=== PATIENT | male | born 1970 | race Hispanic/Latino ===

== ENCOUNTER 2018-01-05 21:45 | Inpatient (IN) | payer MEDICAID, OTHER ==
[2018-01-05 22:02] VITALS: BMI 32.6
--- NOTE | 2018-01-05 22:02 | ED PDOC ---
Arrival/HPI - General Chief Complaint: Psychiatric Evaluation Time Seen by Provider: 01/05/18 21:55 Historian: Patient, EMS - History of Present Illness Narrative History of Present Illness (Text): 47 y/o M w/ h/o substance abuse, bipolar disorder, and anxiety presenting to the ED as a transfer from [facility] for psychiatric admission. Patient was seen and medically cleared at [facility] prior to transfer. Patient was seen by crisis and was accepted for transfer for psychiatric admission by the psychiatric bone density technician. Patient states he feels fine currently. Patient denies any fever, chills, chest pain, shortness of breath, nausea, vomiting, diarrhea, urinary symptoms, back pain, neck pain, headache, dizziness, or any other complaints. Time/Duration: Other (today) Symptom Onset: Gradual Symptom Course: Unchanged Activities at Onset: Light Past Medical History - Provider Review Nursing Documentation Reviewed: Yes - Travel History Have you recently traveled outside [place] w/in the past 3 mons?: No Family/Social History - Physician Review Nursing Documentation Reviewed: Yes Family/Social History: Unknown Family HX Allergies/Home Meds Allergies/Adverse Reactions: Allergies haloperidol [From Haldol] Allergy (Verified 01/06/18 00:53) ANAPHYLAXIS ziprasidone [From Geodon] Allergy (Verified 01/06/18 00:53) ANAPHYLAXIS Review of Systems - Physician Review All systems were reviewed & negative as marked: Yes - Review of Systems Constitutional: Normal. absent: Fevers Eyes: Normal ENT: Normal Respiratory: Normal. absent: SOB, Cough Cardiovascular: Normal. absent: Chest Pain Gastrointestinal: Normal. absent: Abdominal Pain, Diarrhea, Nausea, Vomiting Genitourinary Male: Normal. absent: Dysuria, Frequency, Hematuria, Urinary Output Changes Musculoskeletal: Normal. absent: Back Pain, Neck Pain Skin: Normal. absent: Rash Neurological: Normal. absent: Headache, Dizziness Endocrine: Normal Hemo/Lymphatic: Normal Physical Exam Vital Signs Reviewed: Yes Vital Signs Temp Pulse Resp BP Pulse Ox 01/05/18 22:04 98.4 F 97 H 18 112/73 95 Temperature: Afebrile Blood Pressure: Normal Pulse: Regular Respiratory Rate: Normal Appearance: Positive for: Well-Appearing, Non-Toxic, Comfortable Pain Distress: None Mental Status: Positive for: Alert and Oriented X 3 - Systems Exam Head: Present: Atraumatic, Normocephalic Pupils: Present: PERRL Extroacular Muscles: Present: EOMI Conjunctiva: Present: Normal Mouth: Present: Moist Mucous Membranes Neck: Present: Normal Range of Motion Respiratory/Chest: Present: Clear to Auscultation, Good Air Exchange. No: Respiratory Distress, Accessory Muscle Use Cardiovascular: Present: Regular Rate and Rhythm, Normal S1, S2. No: Murmurs Abdomen: No: Tenderness, Distention, Peritoneal Signs Back: Present: Normal Inspection Upper Extremity: Present: Normal Inspection. No: Cyanosis, Edema Lower Extremity: Present: Normal Inspection. No: Edema Neurological: Present: GCS=15, CN II-XII Intact, Speech Normal Skin: Present: Warm, Dry, Normal Color. No: Rashes Psychiatric: Present: Alert, Oriented x 3, Normal Insight, Normal Concentration Medical Decision Making ED Course and Treatment: 01/05/18 21:58 Impression: 47 year old male transferred from [facility] for psychiatric admission. Plan: -- Admission to [facility] Progress Notes: Patient was seen and medically cleared at [facility] prior to transfer. Patient was accepted for transfer for psychiatric admission by the psychiatric bone density technician. Patient will be admitted to [facility] under Dr. Koehler's service for bipolar disorder and anxiety. Patient agreeable with plan. - Medication Orders Current Medication Orders: Acetaminophen (Tylenol 325mg Tab) 650 mg PO Q6H PRN PRN Reason: Pain, moderate (4-7) Last Admin: 01/13/18 05:25 Dose: 650 mg [facility] Pain/Vitals Document 01/13/18 05:25 EOO (Rec: 01/13/18 05:25 EOO [id number]) Pain Reassessment Is This A Pain ReAssessment? No Sleep Is patient sleeping during reassessment? Yes Re-Assess: IVAN Pain/Vitals Document 01/13/18 06:25 EOO (Rec: 01/13/18 07:00 EOO [id number]) Pain Reassessment Is This A Pain ReAssessment? No Albuterol/Ipratropium (Duoneb 3 Mg/0.5 Mg (3 Ml) Ud) 3 ml IH [id number] PRN PRN Reason: Shortness of Breath Chlorpromazine (Thorazine) 50 mg IM Q6H PRN; Protocol PRN Reason: Severe Agitation Chlorpromazine (Thorazine) 50 mg PO Q6H PRN; Protocol PRN Reason: Agitation Cyclobenzaprine HCl (Flexeril) 10 mg PO TID PRN PRN Reason: Other Last Admin: 01/14/18 04:08 Dose: 10 mg Docusate Sodium (Colace) 100 mg PO DAILY [facility] Last Admin: 01/14/18 09:27 Dose: 100 mg Last Bowel Movement Document 01/14/18 09:27 CV (Rec: 01/14/18 09:27 CV [id number]) Last Bowel Movement Last Bowel Movement 01/13/18 Famotidine (Pepcid) 20 mg PO DAILY [facility] Last Admin: 01/14/18 09:40 Dose: Not Given Non-Admin Reason: Patient Refused Gabapentin (Neurontin) 300 mg PO TID [facility] PRN Reason: Protocol Last Admin: 01/14/18 13:29 Dose: 300 mg Behavioural Document 01/14/18 13:29 CV (Rec: 01/14/18 13:29 CV [id number]) Maintenance Maintenance Dose Yes Nonmedicinal Nonmedicinal Interventions Therapeutic Communication Re-Assess: Reassess Psych Meds Document 01/14/18 14:29 CV (Rec: 01/14/18 15:43 CV [id number]) Reassess Psych Med Effective Home Med (Home Med) 1 unit PO DAILY [facility] Last Admin: 01/14/18 09:31 Dose: 1 unit Lidocaine (Lidoderm) 2 ea TD DAILY [facility] Last Admin: 01/14/18 09:35 Dose: 2 ea MAR Transdermal Patch Site Document 01/14/18 09:35 CV (Rec: 01/14/18 09:36 CV [id number]) Transdermal Patch Site Transdermal Patch Site Right Upper Chest [place] Carbonate ([place] Carbonate 300mg) 300 mg PO BID [facility] Last Admin: 01/14/18 09:28 Dose: 300 mg Behavioural Document 01/14/18 09:28 CV (Rec: 01/14/18 09:28 CV [id number]) Maintenance Maintenance Dose Yes Nonmedicinal Nonmedicinal Interventions Therapeutic Communication Re-Assess: Reassess Psych Meds Document 01/14/18 10:28 CV (Rec: 01/14/18 13:24 CV [id number]) Reassess Psych Med Effective [place] Carbonate ([place] Carbonate 300mg) 300 mg PO HS [facility] Last Admin: 01/13/18 23:41 Dose: 300 mg Behavioural Document 01/13/18 23:41 EOO (Rec: 01/13/18 23:41 EOO [id number]) Maintenance Maintenance Dose Yes Nonmedicinal Nonmedicinal Interventions Therapeutic Communication Behavior Behavior for Medication: Continuous pacing/restlessness Re-Assess: Reassess Psych Meds Document 01/14/18 00:41 EOO (Rec: 01/14/18 03:15 EOO [id number]) Reassess Psych Med Effective Lorazepam (Ativan) 2 mg IM Q6H PRN; Protocol PRN Reason: Severe Agitation Lorazepam (Ativan) 2 mg PO Q6H PRN; Protocol PRN Reason: Agitation Last Admin: 01/14/18 13:28 Dose: 2 mg Behavioural Document 01/14/18 13:28 CV (Rec: 01/14/18 13:28 CV [id number]) Maintenance Maintenance Dose No Nonmedicinal Nonmedicinal Interventions Therapeutic Communication Behavior Behavior for Medication: Anxiety Re-Assess: Reassess Psych Meds Document 01/14/18 14:28 CV (Rec: 01/14/18 15:43 CV [id number]) Reassess Psych Med Effective Nicotine (Nicoderm Cq) 1 patch TD DAILY [facility] Last Admin: 01/14/18 09:25 Dose: 1 patch MAR Transdermal Patch Site Document 01/14/18 09:25 CV (Rec: 01/14/18 09:25 CV [id number]) Transdermal Patch Site Transdermal Patch Site Left Outer Upper Arm Quetiapine Fumarate (Seroquel Xr) 800 mg PO HS JOHN PRN Reason: Protocol Last Admin: 01/13/18 21:38 Dose: 800 mg Behavioural Document 01/13/18 21:38 EOO (Rec: 01/13/18 21:39 EOO [id number]) Maintenance Maintenance Dose Yes Nonmedicinal Nonmedicinal Interventions Therapeutic Communication Behavior Behavior for Medication: Hallucinations/paranoid/ delusions/extreme fear Re-Assess: Reassess Psych Meds Document 01/13/18 22:38 EOO (Rec: 01/13/18 23:40 EOO [id number]) Reassess Psych Med Effective Senna/Docusate Sodium (Senokot S 50 Mg-8.6 Mg) 2 tab PO DAILY JOHN Last Admin: 01/14/18 09:26 Dose: 2 tab Tramadol HCl (Ultram) 50 mg PO TID PRN PRN Reason: severe pain >=7/10 Last Admin: 01/14/18 09:33 Dose: 50 mg [facility] Pain Assessment Document 01/14/18 09:33 CV (Rec: 01/14/18 09:34 CV [id number]) Pain Reassessment Is this a pain reassessment? No Sleep Is patient sleeping during reassessment? No Pain Scale Used Pain Scale Used Numeric Location Left, Right or Bilateral Bilateral Pain Location Body Site Chest Description Description Intermittent Intensity of Pain at present 8 Acceptable Level of Pain 3 Pain Behavior Moaning Aggravating Factors Changing Position Alleviating Factors/Management Medication Techniques Alleviating Factors Medication Re-Assess: [facility] Pain Assessment Document 01/14/18 10:33 CV (Rec: 01/14/18 13:26 CV [id number]) Pain Reassessment Is this a pain reassessment? Yes Sleep Is patient sleeping during reassessment? No Presence of Pain Presence of Pain Yes Pain Scale Used Pain Scale Used Numeric Location Left, Right or Bilateral Bilateral Pain Location Body Site Chest Description Description Intermittent Intensity of Pain at present 3 Alleviating Factors/Management Medication Techniques Alleviating Factors Medication Venlafaxine HCl (Effexor Xr) 300 mg PO DAILY [facility] Last Admin: 01/14/18 09:27 Dose: 300 mg Zolpidem Tartrate (Ambien) 10 mg PO HS PRN; Protocol PRN Reason: Insomnia Last Admin: 01/13/18 21:39 Dose: 10 mg Behavioural Document 01/13/18 21:39 EOO (Rec: 01/13/18 21:39 EOO [id number]) Maintenance Maintenance Dose Yes Nonmedicinal Nonmedicinal Interventions Therapeutic Communication Behavior Behavior for Medication: Insomnia Re-Assess: Reassess Psych Meds Document 01/13/18 22:39 EOO (Rec: 01/13/18 23:40 EOO [id number]) Reassess Psych Med Effective Discontinued Medications Albuterol/Ipratropium (Duoneb 3 Mg/0.5 Mg (3 Ml) Ud) 3 ml IH STAT STA Stop: 01/06/18 13:20 Last Admin: 01/06/18 15:47 Dose: 3 ml Alprazolam (Xanax) 0.25 mg PO QID PRN; Protocol PRN Reason: Anxiety Stop: 01/13/18 08:01 Last Admin: 01/13/18 05:25 Dose: 0.25 mg Behavioural Document 01/13/18 05:25 EOO (Rec: 01/13/18 05:25 EOO [id number]) Maintenance Maintenance Dose Yes Nonmedicinal Nonmedicinal Interventions Therapeutic Communication Behavior Behavior for Medication: Anxiety Re-Assess: Reassess Psych Meds Document 01/13/18 06:25 EOO (Rec: 01/13/18 07:00 EOO [id number]) Reassess Psych Med Effective Amoxicillin/Clavulanate Potassium (Augmentin 875 Mg-125 Mg Tab) 1 tab PO BID JOHN PRN Reason: Protocol Stop: 01/09/18 16:01 Last Admin: 01/09/18 17:07 Dose: 1 tab Zolpidem Tartrate (Ambien) 5 mg PO HS PRN; Protocol PRN Reason: Insomnia Last Admin: 01/10/18 21:26 Dose: 5 mg Behavioural Document 01/10/18 21:26 EOO (Rec: 01/10/18 21:26 EOO [id number]) Maintenance Maintenance Dose Yes Nonmedicinal Nonmedicinal Interventions Therapeutic Communication Behavior Behavior for Medication: Insomnia Re-Assess: Reassess Psych Meds Document 01/10/18 22:26 EOO (Rec: 01/10/18 22:54 EOO [id number]) Reassess Psych Med Effective - Scribe Statement The provider has reviewed the documentation as recorded by the Fawad Paul Provider Scribe Attestation: All medical record entries made by the Scribe were at my direction and personally dictated by me. I have reviewed the chart and agree that the record accurately reflects my personal performance of the history, physical exam, medical decision making, and the department course for this patient. I have also personally directed, reviewed, and agree with the discharge instructions and disposition. Disposition/Present on Arrival - Present on Arrival Any Indicators Present on Arrival: No History of DVT/PE: No History of Uncontrolled Diabetes: No Urinary Catheter: No History of Decub. Ulcer: No - Disposition Have Diagnosis and Disposition been Completed?: Yes Diagnosis: Bipolar 1 disorder Disposition: HOSPITALIZED Disposition Time: 22:35 Patient Plan: Admission Patient Problems: Current Active Problems Problem Status Onset Bipolar 1 disorder Acute Opioid use disorder Acute Condition: STABLE
[2018-01-06] MEDS: QUEtiapine 200 mg XR Tab PO SCH ×2 (00:22→21:22)
[2018-01-06 01:34] VITALS: O2SAT 94
--- NOTE | 2018-01-06 03:35 | PCM.BM ---
<WaltIssa - Last Filed: 01/06/18 03:32> Treatment Plan Problems - Problems identified on initial assessmt Ineffective Coping Date Initiated: 01/05/18 Time Initiated: 22:45 Assessment reference: NA Status: Active Priority: 1 Ineffective Impulse Control Date Initiated: 01/05/18 Time Initiated: 22:45 Assessment reference: NA Status: Active Priority: 2 Hopelessness/Hopelessness Date Initiated: 01/05/18 Time Initiated: 22:45 Assessment reference: NA Status: Active Priority: 3 Feelings of Worthlessness Date Initiated: 01/05/18 Time Initiated: 22:45 Assessment reference: NA Status: Active Priority: 4 Anxiety Date Initiated: 01/05/18 Time Initiated: 22:45 Assessment reference: NA Status: Active Priority: 5 Treatment assets and liabiliti Patient Assests: cooperative, ADL independent, negotiates basic needs, cognitively intact, good interpersonal skills Patient Liabilities: physical pain, financial problems, poor support system, substance abuse, medical problems - Milieu Protocol Maintain good personal hygiene: daily Encourage regular showers, every shift Remind patient to perform daily oral care, every shift Assist patient to perform ADL's Maintain personal safety: every shift Educate patient to report safety concerns to staff, every shift Monitor environment for contraband/sharps Medication safety: Monitor for expected outcome, potential side effects: every shift, Assess barriers to learning: every shift, Assess readiness for medication education: every shift Family Contact Family involvement: No known Family/SO Family contact: Patient declines to allow family contact at present - Goals for Treatment Patient goals for treatment: Feel needed, sense of not wanting to hurt myself. Discharge/Continuing Care - Education Needs Education Needs: Patient Medication, Patient Diagnosis/Disease Process, Patient Coping Skills, Patient Anger Management skills, Patient Placement options, Patient Community resources, Patient Activities of Daily Living, Patient Pain, Patient Nutrition, Patient Uses of Medical Equipment, Patient Health Practices/ Safety, Patient Personal Hygiene/Grooming, Patient Aftercare Safety Plan - Discharge Discharge Criteria: Tolerates medication w/o severe side effects <Janny Koehler - Last Filed: 01/06/18 15:35> - Diagnosis (1) Bipolar 1 disorder Status: Acute Interventions: 01/06/18 15:36 Psychoeducation Psychopharmacology/adjustment of medications as needed/ monitoring possible side effects Monitor blood level of mood stabilizers Evaluate pt on daily basis Compliance with medications and follow up appointments Suicide and homicide risk assessment and prevention, coping strategies, safety plan Relapse prevention Reduction of symptoms Improve functional status Family involvement As outpatient: cognitive behavioral therapy (2) Opioid use disorder Status: Acute Interventions: 01/06/18 15:36 Maintaining sobriety Relapse prevention Possible rehabilitation Motivational interviewing 12-step programs: AA meetings <Galina Black Y - Last Filed: 01/07/18 13:20> Family Contact Family involvement: Famliy/SO not involved
[2018-01-06 07:47] LABS: GLUCOSE,FASTING 90 mg/dL (65-110); HDL CHOLESTEROL 28 mg/dL (29-60)
[2018-01-06 07:59] LABS: LDL CHOLESTEROL 78 mg/dL (0-129)
[2018-01-06] MEDS: Docusate-Senna 50 mg-8.6 mg Tab PO SCH (09:07)
[2018-01-06] MEDS: Amoxicillin-Clav 875-125 mg Tab PO SCH ×2 (09:07→17:19)
[2018-01-06] MEDS: Venlafaxine 75 mg ER Cap PO SCH (09:07)
[2018-01-06] MEDS: ODEFSEY PO SCH (09:49)
[2018-01-06 10:26] LABS: BASO # 0.02 K/mm3 (0.0-2.0); BASO % 0.5 % (0.0-3.0); EOS # 0.2 (0.0-0.7); EOS % 4.3 % (1.5-5.0); GRAN # 2.24 (1.4-6.5); GRAN % 57.3 % (50.0-68.0); HEMOGLOBIN 11.3 g/dL (14.0-18.0); LYMPH # 1.1 (1.2-3.4); LYMPH % 28.9 % (22.0-35.0); MEAN CELL VOLUME 91.8 fl (80.0-105.0); MEAN CORPUSCULAR HGB CONC 33.7 g/dl (31.0-37.0); MEAN PLATELET VOLUME 9.1 fl (7.0-11.0); MONO # 0.4 (0.1-0.6); RBC 3.65 10^6/uL (3.5-6.1); RED CELL DISTRIBUTION WIDTH 14.5 % (11.5-14.5); WHITE BLOOD COUNT 3.9 10^3/ul (4.5-11.0)
[2018-01-06 10:33] LABS: ALB/GLOB RATIO 1.1 (1.1-1.8); ALBUMIN 3.5 g/dL (3.0-4.8); ALT/SGPT 128 U/L (7-56); AST/SGOT 101 U/L (17-59); BLOOD UREA NITROGEN 9 mg/dL (7-21); CALCIUM 9.2 mg/dL (8.4-10.5); GFR NON-AFRICAN AMERICAN > 60
[2018-01-06] MEDS ORDERED: Albuterol-Ipratrop 3 mg / 0.5 (3 ml) UD IH STA (13:19)
[2018-01-06] MEDS ORDERED: Albuterol-Ipratrop 3 mg / 0.5 (3 ml) UD IH PRN (13:19)
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
--- NOTE | 2018-01-06 21:46 | CP.PCM.CON ---
<Damián Phillip - Last Filed: 01/06/18 21:46> History of Present Illness - History of Present Illness History of Present Illness: Damián Phillip, PGY1 Medicine Consult Note for Dr. Navarrete Patient is a 47 y/o M with PMHx of bipolar disorder, anxiety, opioid use disorder, multiple psychiatric admissions, and multiple suicide attempts who was initially found have been overdosing on heroin. He was found unresponsive with eight bags of heroin. Patient was in respiratory failure. CPR was conducted in the field. Patient was transferred to [facility], where patient was stabilized and became responsive. Patient was transferred back to [facility] for inpatient psychiatry unit to continue with his treatment. Patient has recently been complaining of chest pain and needed medical team evaluation. Patient stated that he has chest pain that is worse with deep breaths. Chest pain is located at the sternum and xyphoid process with pain at the left and right ribcage. Chest pain is associated with deep breaths. Patient also says that he is on Augmentin for treatment of his pneumonia (currently on day 4). Patient does not have abdominal pain, lightheadedness, dizziness, nausea, vomiting, diarrhea, or numbness and tingling of the extremities. Patient still endorses suicide ideation and depression. A full 12 point ROS was conducted and unremarkable except as stated above. PMHx: bipolar disorder, anxiety, opioid use disorder, multiple psychiatric admissions, and multiple suicide attempts PSHx: cholecystectomy Allergies: Haloperidol, ziprasidone Meds: unknown home meds SocialHx: 25 pack year smoking hx, heroin use once a week, social drinker FamilyHx: mother had cancer (uknown which type), father had emphysema Review of Systems - Review of Systems All systems: reviewed and no additional remarkable complaints except (as per HPI.) Past Patient History - Past Social History Smoking Status: Never Smoked - HEMATOLOGICAL/ONCOLOGICAL Hx Hepatitis C: Yes - PSYCHIATRIC Hx Anxiety: Yes Hx Bipolar Disorder: Yes Hx Depression: Yes Hx Substance Use: Yes Meds Allergies/Adverse Reactions: Allergies Allergy/AdvReac Type Severity Reaction Status Date / Time haloperidol [From Haldol] Allergy ANAPHYLAXIS Verified 01/06/18 00:53 ziprasidone [From Geodon] Allergy ANAPHYLAXIS Verified 01/06/18 00:53 - Medications Medications: Current Medications Acetaminophen (Tylenol 325mg Tab) 650 mg PO Q6H PRN PRN Reason: Pain, moderate (4-7) Last Admin: 01/06/18 21:22 Dose: 650 mg Albuterol/Ipratropium (Duoneb 3 Mg/0.5 Mg (3 Ml) Ud) 3 ml IH [id number] PRN PRN Reason: Shortness of Breath Alprazolam (Xanax) 0.25 mg PO QID PRN; Protocol PRN Reason: Anxiety Stop: 01/13/18 08:01 Last Admin: 01/06/18 17:19 Dose: 0.25 mg Amoxicillin/Clavulanate Potassium (Augmentin 875 Mg-125 Mg Tab) 1 tab PO BID JOHN PRN Reason: Protocol Stop: 01/09/18 16:01 Last Admin: 01/06/18 17:19 Dose: 1 tab Chlorpromazine (Thorazine) 50 mg IM Q6H PRN; Protocol PRN Reason: Severe Agitation Chlorpromazine (Thorazine) 50 mg PO Q6H PRN; Protocol PRN Reason: Agitation Cyclobenzaprine HCl (Flexeril) 10 mg PO TID PRN PRN Reason: Other Last Admin: 01/06/18 17:19 Dose: 10 mg Docusate Sodium (Colace) 100 mg PO DAILY [facility] Last Admin: 01/06/18 09:08 Dose: 100 mg Famotidine (Pepcid) 20 mg PO DAILY [facility] Last Admin: 01/06/18 09:10 Dose: Not Given Gabapentin (Neurontin) 300 mg PO TID JOHN PRN Reason: Protocol Last Admin: 01/06/18 17:20 Dose: 300 mg Home Med (Home Med) 1 unit PO DAILY [facility] Last Admin: 01/06/18 09:49 Dose: 1 unit Lidocaine (Lidoderm) 2 ea TD DAILY [facility] [place] Carbonate ([place] Carbonate 300mg) 300 mg PO BID [facility] Last Admin: 01/06/18 17:19 Dose: 300 mg Lorazepam (Ativan) 2 mg IM Q6H PRN; Protocol PRN Reason: Severe Agitation Lorazepam (Ativan) 2 mg PO Q6H PRN; Protocol PRN Reason: Agitation Last Admin: 01/06/18 09:08 Dose: 2 mg Nicotine (Nicoderm Cq) 1 patch TD DAILY [facility] Last Admin: 01/06/18 09:07 Dose: 1 patch Quetiapine Fumarate (Seroquel Xr) 800 mg PO HS JOHN PRN Reason: Protocol Last Admin: 01/06/18 21:22 Dose: 800 mg Senna/Docusate Sodium (Senokot S 50 Mg-8.6 Mg) 2 tab PO DAILY [facility] Last Admin: 01/06/18 09:07 Dose: 2 tab Venlafaxine HCl (Effexor Xr) 300 mg PO DAILY [facility] Last Admin: 01/06/18 09:07 Dose: 300 mg Zolpidem Tartrate (Ambien) 5 mg PO HS PRN; Protocol PRN Reason: Insomnia Last Admin: 01/06/18 21:23 Dose: 5 mg Physical Exam - Head Exam Head Exam: ATRAUMATIC, NORMAL INSPECTION, NORMOCEPHALIC - Eye Exam Eye Exam: EOMI, Normal appearance, PERRL Pupil Exam: NORMAL ACCOMODATION, PERRL - ENT Exam ENT Exam: Mucous Membranes Moist, Normal Exam - Neck Exam Neck exam: Positive for: Normal Inspection - Respiratory Exam Respiratory Exam: Chest Wall Tenderness (Tenderness to palpation at the xiphoid process and the left/right rib cage), Clear to Auscultation Bilateral, NORMAL BREATHING PATTERN. absent: Rales, Rhonchi, Wheezes, Respiratory Distress - Cardiovascular Exam Cardiovascular Exam: REGULAR RHYTHM, RRR, +S1, +S2. absent: Systolic Murmur - GI/Abdominal Exam GI & Abdominal Exam: Normal Bowel Sounds, Soft. absent: Tenderness - Extremities Exam Extremities exam: Positive for: full ROM, normal inspection, pedal pulses present. Negative for: pedal edema, tenderness - Skin Skin Exam: Dry, Intact, Normal Color, Warm Results - Vital Signs Recent Vital Signs: Last Vital Signs Temp 97.6 F 01/06/18 06:50 Pulse 95 H 01/06/18 16:16 Resp 18 01/06/18 16:16 BP 116/71 01/06/18 16:16 Pulse Ox 94 L 01/05/18 22:35 - Labs Result Diagrams: 01/06/18 10:10 01/06/18 10:10 Labs: Laboratory Results - last 24 hr 01/06/18 01/06/18 01/06/18 07:15 07:15 07:15 WBC RBC Hgb Hct MCV MCH MCHC RDW Plt Count MPV Gran % Lymph % (Auto) [place] % (Auto) Eos % (Auto) Baso % (Auto) Gran # Lymph # (Auto) [place] # (Auto) Eos # (Auto) Baso # (Auto) Sodium Potassium Chloride Carbon Dioxide Anion Gap BUN Creatinine Est GFR ( Amer) Est GFR (Non-Af Amer) Random Glucose Fasting Glucose 90 Calcium Magnesium Total Bilirubin AST ALT Alkaline Phosphatase Total Protein Albumin Globulin Albumin/Globulin Ratio Triglycerides 127 Cholesterol 150 LDL Cholesterol Direct 78 HDL Cholesterol 28 L Free T4 TSH 3rd Generation 5.56 H RPR Nonreactive 01/06/18 01/06/18 01/06/18 10:10 10:10 10:10 WBC 3.9 L RBC 3.65 Hgb 11.3 L Hct 33.5 L MCV 91.8 MCH 31.0 MCHC 33.7 RDW 14.5 Plt Count 191 MPV 9.1 Gran % 57.3 Lymph % (Auto) 28.9 [place] % (Auto) 9.0 H Eos % (Auto) 4.3 Baso % (Auto) 0.5 Gran # 2.24 Lymph # (Auto) 1.1 L [place] # (Auto) 0.4 Eos # (Auto) 0.2 Baso # (Auto) 0.02 Sodium 139 Potassium 4.0 Chloride 105 Carbon Dioxide 28 Anion Gap 10 BUN 9 Creatinine 0.8 Est GFR ( Amer) > 60 Est GFR (Non-Af Amer) > 60 Random Glucose 120 H Fasting Glucose Calcium 9.2 Magnesium 1.7 Total Bilirubin 0.8 AST 101 H ALT 128 H Alkaline Phosphatase 230 H Total Protein 6.7 Albumin 3.5 Globulin 3.2 Albumin/Globulin Ratio 1.1 Triglycerides Cholesterol LDL Cholesterol Direct HDL Cholesterol Free T4 0.93 TSH 3rd Generation RPR Assessment & Plan - Assessment and Plan (Free Text) Assessment: Patient is a 47 y/o M with PMHx of bipolar disorder, anxiety, opioid use disorder, multiple psychiatric admissions, and multiple suicide attempts who was initially found have been overdosing on heroin. Patient was unresponsive in the field, CPR was conducted, and patient was stabilized. Medical team consulted for chest pain evaluation. Chest pain is atypical in nature and secondary to chest compressions. Plan: Reproducible Chest Pain 2/2 Cardiopulmonary Resuscitation - Reproducible chest pain on palpation at sternum/xiphoid process and lateral rib cages; worsened with deep breaths - Vital signs stable - Free T4 level - TSH was 5.56 - Pain control with tylenol Pneumonia - c/w Augmentin for a total of 7 days - Today is day #4 - nebulizer treatment Substance Abuse - Heroin - Counseling Bipolar Disorder - c/w inpatient psych - c/w psych meds - Patient is depressed and continues to have suicidal ideation Dispo: Patient has no acute issues at this time. Medical team will sign off. Please reconsult if needed. Thank you. Case was discussed and reviewed with Attending Physician, Dr. Navarrete. <Ava Navarrete R - Last Filed: 01/07/18 14:17> Meds - Medications Medications: Current Medications Acetaminophen (Tylenol 325mg Tab) 650 mg PO Q6H PRN PRN Reason: Pain, moderate (4-7) Last Admin: 01/06/18 21:22 Dose: 650 mg Albuterol/Ipratropium (Duoneb 3 Mg/0.5 Mg (3 Ml) Ud) 3 ml IH [id number] PRN PRN Reason: Shortness of Breath Alprazolam (Xanax) 0.25 mg PO QID PRN; Protocol PRN Reason: Anxiety Stop: 01/13/18 08:01 Last Admin: 01/07/18 13:05 Dose: 0.25 mg Amoxicillin/Clavulanate Potassium (Augmentin 875 Mg-125 Mg Tab) 1 tab PO BID JOHN PRN Reason: Protocol Stop: 01/09/18 16:01 Last Admin: 01/07/18 08:19 Dose: 1 tab Chlorpromazine (Thorazine) 50 mg IM Q6H PRN; Protocol PRN Reason: Severe Agitation Chlorpromazine (Thorazine) 50 mg PO Q6H PRN; Protocol PRN Reason: Agitation Cyclobenzaprine HCl (Flexeril) 10 mg PO TID PRN PRN Reason: Other Last Admin: 01/07/18 13:05 Dose: 10 mg Docusate Sodium (Colace) 100 mg PO DAILY [facility] Last Admin: 01/07/18 08:19 Dose: 100 mg Famotidine (Pepcid) 20 mg PO DAILY [facility] Last Admin: 01/07/18 08:20 Dose: Not Given Gabapentin (Neurontin) 300 mg PO TID [facility] PRN Reason: Protocol Last Admin: 01/07/18 13:05 Dose: 300 mg Home Med (Home Med) 1 unit PO DAILY [facility] Last Admin: 01/07/18 08:18 Dose: 1 unit Lidocaine (Lidoderm) 2 ea TD DAILY [facility] Last Admin: 01/07/18 08:18 Dose: 2 ea [place] Carbonate ([place] Carbonate 300mg) 300 mg PO BID [facility] Last Admin: 01/07/18 08:19 Dose: 300 mg Lorazepam (Ativan) 2 mg IM Q6H PRN; Protocol PRN Reason: Severe Agitation Lorazepam (Ativan) 2 mg PO Q6H PRN; Protocol PRN Reason: Agitation Last Admin: 01/06/18 09:08 Dose: 2 mg Nicotine (Nicoderm Cq) 1 patch TD DAILY [facility] Last Admin: 01/07/18 08:18 Dose: 1 patch Quetiapine Fumarate (Seroquel Xr) 800 mg PO HS JOHN PRN Reason: Protocol Last Admin: 01/06/18 21:22 Dose: 800 mg Senna/Docusate Sodium (Senokot S 50 Mg-8.6 Mg) 2 tab PO DAILY [facility] Last Admin: 01/07/18 08:19 Dose: 2 tab Venlafaxine HCl (Effexor Xr) 300 mg PO DAILY [facility] Last Admin: 01/07/18 08:18 Dose: 300 mg Zolpidem Tartrate (Ambien) 5 mg PO HS PRN; Protocol PRN Reason: Insomnia Last Admin: 01/06/18 21:23 Dose: 5 mg Results - Vital Signs Recent Vital Signs: Last Vital Signs Temp 98.5 F 01/07/18 06:57 Pulse 93 H 01/07/18 06:57 Resp 20 01/07/18 06:57 BP 119/73 01/07/18 06:57 Pulse Ox 94 L 01/05/18 22:35 - Labs Result Diagrams: 01/06/18 10:10 01/06/18 10:10 Labs: Laboratory Results - last 24 hr 01/06/18 07:15 RPR Nonreactive Attending/Attestation - Attestation I have personally seen and examined this patient.: Yes I have fully participated in the care of the patient.: Yes I have reviewed all pertinent clinical information: Yes Notes (Text): Patient seen and examined by me at 1:15PM resident 01/06/18. Case including HPI, physical exam, and assessment and plan discussed with resident. Agree with above with following additions/corrections. Patient is a 47-year-old male with past medical history significant for bipolar disorder, anxiety, opioid use disorder, drug abuse, HIV, chronic hepatitis C, and multiple suicide attempts that initially presented to [facility] with heroin overdose. At that time CPR was initiated and patient was stabilized. Patient was then transferred to [facility] for inpatient psychiatric treatment for suicidal ideations. We are consulted for medical management. Patient states that he is feeling okay. Patient complains of bilateral rib and chest pain which he has had since having CPR. Patient states that he has broken ribs from the CPR. Patient states that he does feel short of breath and has been trying not to cough secondary to pain with coughing. Rib cage pain and chest pain is worse with deep breaths. There is no radiation of the pain. Patient is a smoker. Patient states that while he was [facility], he was also found to have pneumonia for which he is on Augmentin. He denies any nausea , vomiting, or abdominal pain. No headaches or dizziness. No fevers or chills. No dysuria. No diarrhea or constipation. Patient states that he is still having suicidal ideations with a plan however this has improved since being here in the hospital. 12 point review of systems reviewed by me. Please see HPI. All other systems are negative. Physical exam: General: Awake and alert sitting up in bed in no acute distress HEENT: Normocephalic atraumatic. Pupils equal reactive. No scleral icterus. Oropharynx is pink and moist. No pharyngeal erythema or exudate appreciated. Neck is supple. Hearing grossly intact. Ears and nose externally unremarkable Cardiovascular: Normal rhythm. Normal S1, S2. No murmurs, rubs, or gallops appreciated Pulmonary: Normal respiratory effort. Decreased breath sounds. No rhonchi, rales or wheezing appreciated. Gastrointestinal: Soft, nondistended. Positive suprapubic tenderness. Positive bowel sounds all 4 quadrants, no guarding. Musculoskeletal: Normal range of motion all extremities, no calf tenderness, no edema appreciated. Central nervous system: AAOx3. CN2-12 grossly intact. 5/5 muscle strength all extremities. Dermatologic: Skin warm and dry Assessment and plan: Patient is a 47-year-old male with past medical history significant for bipolar disorder, anxiety, opioid use disorder, drug abuse, HIV , chronic hepatitis C, and multiple suicide attempts that is s/p cardiopulmonary resuscitation for heroin overdose. Patient admitted to voluntary psychiatric unit for suicidal ideations. We're consulted for medical management. 1. Chest pain secondary to rib fractures from CPR. Pain is reproducible. Continue Tylenol as needed. 2. Shortness of breath likely secondary to underlying COPD secondary to tobacco abuse. Patient counseled on smoking cessation. Placed on nebulizer treatments as needed. 3. Pneumonia. Continue with Augmentin for a total of 7 days. Continue with nebulizer treatments as needed. Patient should have repeat chest x-ray after completion of antibiotics for resolution. 4. Elevated LFTs. Patient does have chronic hepatitis C. Unsure of patient's baseline LFTs. We will repeat labs in a.m. May need GI consult. 5. Elevated TSH. Free T4 is within normal limits. Patient should have repeat blood work done with primary care doctor as an outpatient. 6. Substance abuse. Bipolar disorder. Suicidal ideations. Care as per primary psychiatry team. Case discussed in detail with the patient regarding current diagnosis and treatment plan. Thank you for allowing us to participate in the care of your patient.
--- NOTE | 2018-01-07 00:41 | CON ---
DATE: 01/06/2018 LOCATION: The patient was seen earlier this morning in the Psychiatric floor. CHIEF COMPLAINT: Positive HIV for years. HISTORY OF PRESENT ILLNESS: This is a 47-year-old male with positive HIV who states that his viral load was initially at 14,000 and it has become undetectable and his T-cells were approximately 380, it was also positive hepatitis C, however, he has not been treated hepatitis C. He also has history of depression and who is also with anxiety and bipolar and who was admitted to the emergency room because of with the diagnoses of bipolar disorder and anxiety. An Infectious Disease consultation requested for the HIV medications. The patient states that he has no nausea, no vomiting, now he is tolerating his HIV medication. He is followed up in [facility] ([facility] REVIEW OF SYSTEMS: A 12-point review of systems is reviewed. PAST MEDICAL HISTORY: Significant for depression, anxiety, substance abuse, hepatitis C and positive HIV. PAST SURGICAL HISTORY: Noncontributory. ALLERGIES: PATIENT IS ALLERGIC TO HALDOL AND ZIPRASIDONE. MEDICATIONS: His HIV medications, he takes one pill a day. PHYSICAL EXAMINATION: VITAL SIGNS: The patient's temperature 98, blood pressure is 130/70, respiratory rate 20, heart rate of 95. HEENT: Unremarkable. NECK: Supple. LUNGS: Have decreased breath sounds. HEART: Normal S1, S2. ABDOMEN: Soft. LABORATORY EXAMINATION: Reveals a white count of 3.9, hemoglobin 11, platelets of 191. Chemistries are noted. LFTs are elevated. Thyroid level is noted. ASSESSMENT AND PLAN: This is a 47-year-old male with positive human immunodeficiency virus and hepatitis C, depression, anxiety, bipolar. Would recommend the patient to continue with his human immunodeficiency virus medications from home and we will follow with you. Douglas Chau MD
[2018-01-07] MEDS: Venlafaxine 75 mg ER Cap PO SCH (08:18)
[2018-01-07] MEDS: ODEFSEY PO SCH (08:18)
[2018-01-07] MEDS: Lidocaine 5% Patch TD SCH (08:18)
[2018-01-07] MEDS: Docusate-Senna 50 mg-8.6 mg Tab PO SCH (08:19)
[2018-01-07] MEDS: Amoxicillin-Clav 875-125 mg Tab PO SCH ×2 (08:19→17:09)
--- NOTE | 2018-01-07 13:09 | PCM.PYCHPN ---
Psychiatric Progress Note - Psychiatric Progress Note Patient seen today, length of contact: 30min Patient Chief Complaint: "I still feel very depressed, suicidal, oh no, I don't have a plan" Problems Identified/Issues Discussed: Suicide/ homicide prevention, past psychiatric h/o, current psychiatric symptoms , medical problems, risk/benefits and alternatives of medications, medications compliance, coping strategies, substance abuse h/o, relapse prevention, importance of follow up with psychiatrist and therapist, discharge plan. Medical Problems: see medical and ID notes for more detailed information Diagnostic Results: 01/06/18 10:10 01/06/18 10:10 Lab Results 01/06/18 10:10: Free T4 0.93 01/06/18 10:10: Sodium 139, Potassium 4.0, Chloride 105, Carbon Dioxide 28, Anion Gap 10, BUN 9, Creatinine 0.8, Est GFR ( Amer) > 60, Est GFR (Non- Af Amer) > 60, Random Glucose 120 H, Calcium 9.2, Magnesium 1.7, Total Bilirubin 0.8, AST 101 H, ALT 128 H, Alkaline Phosphatase 230 H, Total Protein 6.7, Albumin 3.5, Globulin 3.2, Albumin/Globulin Ratio 1.1 01/06/18 10:10: WBC 3.9 L, RBC 3.65, Hgb 11.3 L, Hct 33.5 L, MCV 91.8, MCH 31.0 , MCHC 33.7, RDW 14.5, Plt Count 191, MPV 9.1, Gran % 57.3, Lymph % (Auto) 28.9 , [place] % (Auto) 9.0 H, Eos % (Auto) 4.3, Baso % (Auto) 0.5, Gran # 2.24, Lymph # (Auto) 1.1 L, [place] # (Auto) 0.4, Eos # (Auto) 0.2, Baso # (Auto) 0.02 01/06/18 07:15: RPR Nonreactive 01/06/18 07:15: TSH 3rd Generation 5.56 H 01/06/18 07:15: Fasting Glucose 90, Triglycerides 127, Cholesterol 150, LDL Cholesterol Direct 78, HDL Cholesterol 28 L Vital Signs Temp Pulse Pulse Resp BP Pulse Ox 01/07/18 06:57 98.5 F 93 H 20 119/73 01/06/18 16:16 95 H 18 116/71 01/06/18 06:50 97.6 F 72 20 116/64 01/06/18 00:00 95 H 20 01/05/18 22:35 98.1 F 95 H 20 131/73 94 L 01/05/18 22:04 98.4 F 97 H 18 112/73 95 DSM 5 Symptoms Update: shortly patient is 47 year old male, reported history of bipolar disorder, aanxiety, history of opioid use disorder, multiple psychiatric admissions in the past, multiple suicidal attempts more than 5, most recent was on first December 2017 while patient was in [facility] patient overdosed on hearing in a bags in order to harm himself,, patient had respiratory failure, required transfer to [facility] medical side, was stabilized from the medical standpoint, was willing to continue treatment on to the psychiatric inpatient unit and was transferred here [facility] for further evaluation and stabilization and medication adjustment. Patient obviously requires further observation and stabilization. as per staff pt is self isolating,pt appears to be depressed, no aggression or agitation, as per staff pt wants to stay in the hospital "for at least for a few months", pt was advised that he would not stay in the hospital longer than he needs. pt was seen at the treatment team meeting today, presented to be depressed, flat affect, pt appears to be careless about his appearance. pt reports that he still feels depressed and hopeless, reported to have suicidal ideation, no plan, no remorse for his suicidal attempt. denied psychosis. denied anxiety. pt c/o pain in his ribs, pt was seen by medical team, recommended tylenol, no acute issues, signed off. pt was seen by ID team, recommended to continue his HIV meds, will f/u. pt tolerates meds well, no side effects observed or reported, AIMS 0, no EPS. Impression: DSM 5 Diagnosis: as per history of bipolar disorder most recent episode depressed severe with no psychosis Opioid use disorder Anxiety disorder Medication Change: Yes (lithium started) Medical Record Reviewed: Yes Consults ordered or reviewed: pt was seen by medical/ID teams Mental Status Examination - Cognitive Function Orientation: Person, Place, Situation Memory: Intact Attention: Poor Concentration: Poor Association: WNL Fund of Knowledge: WNL - Mood Mood: Depressed ("I am depressed, I do not feel any better") - Affect Affect: Flat - Formal Thought Process Formal Thought Process: No Impairment - Suicidal Ideation Suicidal Ideation: Yes Plan: suicidal ideation/no plan contracted for safety no need 1:1 - Homicidal Ideation Homicidal Ideation: No Goal/Treatment Plan - Goal/Treatment Plan Need for Continued Stay: Remain at risks for inpatient hospitalization, Severe depression anxiety, Discharge may exacerbated symptoms, Severe functional impairment Progress Toward Problem(s) and Goals/Treatment Plan: mmilieu, structure, supportive therapy medication list from [facility] reviewed patient was on following medications: Alprazolam 0.25 mg 4 times a day as needed effexor 300mg po daily for depression/anxiety Augmentin 875/125y mouth twice a day [id number]-Hpnybh Ala by mouth daily Gabapentin 300 mg 3 times a day Lidocaine 4% patch 2 patches daily Nicoderm 21 mg daily Seroquel 400 mg at the nighttime as per record pt was on 400mg , but as pe pt he was on 800mg hs lithium 300mg po bid for bipolar disorder and prevent suicidality [facility] Recommended: increase activity as tolerated continue spirometry augmentin for 7days total XR f/u in 4-6weeks continue antiretroviral meds Medical consult called ID consult called SW consultation for discharge plan and social issues Family involvement Follow up on labs Will monitor closely Pt was educated about risk/benefits and alternatives of medications, coping strategies (safety plan, suicide prevention), relapse prevention, importance of follow up with psychiatrist and therapist, stay away from drugs/alcohol/smoking Estimated Date of D/C: 01/13/18
--- NOTE | 2018-01-07 17:04 | CP.PCM.PN ---
Subjective - Date & Time of Evaluation Date of Evaluation: 01/07/18 Time of Evaluation: 11:30 - Subjective Subjective: Afebrile, not in distress. Objective - Vital Signs/Intake and Output Vital Signs (last 24 hours): Temp Pulse Resp BP Pulse Ox 98.5 F 86 20 109/66 94 L 01/07/18 06:57 01/07/18 16:00 01/07/18 06:57 01/07/18 16:00 01/05/18 22:35 - Medications Medications: Current Medications Acetaminophen (Tylenol 325mg Tab) 650 mg PO Q6H PRN PRN Reason: Pain, moderate (4-7) Last Admin: 01/06/18 21:22 Dose: 650 mg Albuterol/Ipratropium (Duoneb 3 Mg/0.5 Mg (3 Ml) Ud) 3 ml IH [id number] PRN PRN Reason: Shortness of Breath Alprazolam (Xanax) 0.25 mg PO QID PRN; Protocol PRN Reason: Anxiety Stop: 01/13/18 08:01 Last Admin: 01/07/18 13:05 Dose: 0.25 mg Amoxicillin/Clavulanate Potassium (Augmentin 875 Mg-125 Mg Tab) 1 tab PO BID JOHN PRN Reason: Protocol Stop: 01/09/18 16:01 Last Admin: 01/07/18 08:19 Dose: 1 tab Chlorpromazine (Thorazine) 50 mg IM Q6H PRN; Protocol PRN Reason: Severe Agitation Chlorpromazine (Thorazine) 50 mg PO Q6H PRN; Protocol PRN Reason: Agitation Cyclobenzaprine HCl (Flexeril) 10 mg PO TID PRN PRN Reason: Other Last Admin: 01/07/18 13:05 Dose: 10 mg Docusate Sodium (Colace) 100 mg PO DAILY [facility] Last Admin: 01/07/18 08:19 Dose: 100 mg Famotidine (Pepcid) 20 mg PO DAILY [facility] Last Admin: 01/07/18 08:20 Dose: Not Given Gabapentin (Neurontin) 300 mg PO TID [facility] PRN Reason: Protocol Last Admin: 01/07/18 13:05 Dose: 300 mg Home Med (Home Med) 1 unit PO DAILY [facility] Last Admin: 01/07/18 08:18 Dose: 1 unit Lidocaine (Lidoderm) 2 ea TD DAILY [facility] Last Admin: 01/07/18 08:18 Dose: 2 ea [place] Carbonate ([place] Carbonate 300mg) 300 mg PO BID JOHN Last Admin: 01/07/18 08:19 Dose: 300 mg Lorazepam (Ativan) 2 mg IM Q6H PRN; Protocol PRN Reason: Severe Agitation Lorazepam (Ativan) 2 mg PO Q6H PRN; Protocol PRN Reason: Agitation Last Admin: 01/06/18 09:08 Dose: 2 mg Nicotine (Nicoderm Cq) 1 patch TD DAILY [facility] Last Admin: 01/07/18 08:18 Dose: 1 patch Quetiapine Fumarate (Seroquel Xr) 800 mg PO HS JOHN PRN Reason: Protocol Last Admin: 01/06/18 21:22 Dose: 800 mg Senna/Docusate Sodium (Senokot S 50 Mg-8.6 Mg) 2 tab PO DAILY [facility] Last Admin: 01/07/18 08:19 Dose: 2 tab Venlafaxine HCl (Effexor Xr) 300 mg PO DAILY [facility] Last Admin: 01/07/18 08:18 Dose: 300 mg Zolpidem Tartrate (Ambien) 5 mg PO HS PRN; Protocol PRN Reason: Insomnia Last Admin: 01/06/18 21:23 Dose: 5 mg - Labs Labs: 01/06/18 10:10 01/06/18 10:10 - Constitutional Appears: Chronically Ill - Head Exam Head Exam: NORMAL INSPECTION - Respiratory Exam Respiratory Exam: Decreased Breath Sounds - Cardiovascular Exam Cardiovascular Exam: +S1, +S2 - GI/Abdominal Exam GI & Abdominal Exam: Soft. absent: Tenderness Assessment and Plan - Assessment and Plan (Free Text) Plan: Assessment chronic HIV infection last CD4 350, VL 1410 R/O aspiration pneumonia bipolar disorder anxiety Plan Continue Odefsey (ART) patient started on Augmentin by medical team for possible pneumonia (day 4 to complete 5-7 days) will monitor clinically
[2018-01-07 18:04] LABS: % CD4 (T HELPER CELL) 32 Percent (30-61); % CD8 (SUPPRESSOR T CELL) 53 Percent (12-42); ABSOLUTE CD4 CELLS 360 Cells/mcL (490-1740); ABSOLUTE CD8 CELLS 600 Cells/mcL (180-1170); ABSOLUTE LYMPHOCYTES 1124 Cells/mcL (850-3900)
[2018-01-07] MEDS: QUEtiapine 200 mg XR Tab PO SCH (22:39)
[2018-01-08 08:03] LABS: ALB/GLOB RATIO 1.2 (1.1-1.8); ALT/SGPT 87 U/L (7-56); AST/SGOT 55 U/L (17-59); BLOOD UREA NITROGEN 20 mg/dL (7-21); CALCIUM 9.4 mg/dL (8.4-10.5); GFR NON-AFRICAN AMERICAN > 60
[2018-01-08] MEDS: Venlafaxine 75 mg ER Cap PO SCH (10:27)
[2018-01-08] MEDS: Amoxicillin-Clav 875-125 mg Tab PO SCH ×2 (10:28→17:35)
[2018-01-08] MEDS: Docusate-Senna 50 mg-8.6 mg Tab PO SCH (10:28)
[2018-01-08] MEDS: Lidocaine 5% Patch TD SCH (10:28)
[2018-01-08] MEDS: ODEFSEY PO SCH (10:29)
[2018-01-08] MEDS: QUEtiapine 200 mg XR Tab PO SCH (21:19)
--- NOTE | 2018-01-08 22:30 | PN ---
DATE: 01/08/2018 SUBJECTIVE: The patient is in bed, in no acute distress, nontoxic. PHYSICAL EXAMINATION: VITAL SIGNS: Temperature is 98, blood pressure is 114/70, respiratory rate of 20. HEENT: Unremarkable. NECK: Supple. LUNGS: Have decreased breath sounds. HEART: Normal S1, S2. ABDOMEN: Soft. LABORATORY EXAMINATION: Reveals a white count of 3.9. Chemistries are noted. Immunology is reviewed with a T-cell percentage of 32% at 360, and viral load for HIV of 1.59 on log. PLAN: A 47-year-old who was seen earlier this morning at psychiatric floor with HIV, anxiety, bipolar disorder, and hepatitis C. The patient is also on Augmentin. The patient will follow up with his human immunodeficiency virus doctor as outpatient in [place] upon discharge. Douglas Chau MD
[2018-01-09] MEDS: Amoxicillin-Clav 875-125 mg Tab PO SCH ×2 (08:37→17:07)
[2018-01-09] MEDS: Lidocaine 5% Patch TD SCH (08:37)
[2018-01-09] MEDS: Venlafaxine 75 mg ER Cap PO SCH (08:38)
[2018-01-09] MEDS: Docusate-Senna 50 mg-8.6 mg Tab PO SCH (08:39)
[2018-01-09] MEDS: ODEFSEY PO SCH (08:40)
--- NOTE | 2018-01-09 09:04 | CP.PCM.PN ---
<MarcelinoTabatha - Last Filed: 01/09/18 11:47> Subjective - Date & Time of Evaluation Date of Evaluation: 01/09/18 Time of Evaluation: 08:00 - Subjective Subjective: Pgy3 ID Progress note for Dr. Carr Patient seen and examined at bedside. No acute events overnight. Patient continues to complain of reproducible chest pain and is aware it is secondary to CPR. He denied any fever, chills, headche, dizziness, palpitations, SOB, cough, abd pain, nausea, vomiting, bowel/bladder complaints, pain/swelling in his legs b/l. He is ambulating around the floor and eating his meals. Patient continues to have suicidal ideations but denied any homicidal ideations, visual/ auditory hallucinations. Objective - Vital Signs/Intake and Output Vital Signs (last 24 hours): Temp Pulse Resp BP Pulse Ox 98.1 F 96 H 20 106/69 94 L 01/09/18 06:55 01/09/18 06:55 01/09/18 06:55 01/09/18 06:55 01/05/18 22:35 - Medications Medications: Current Medications Acetaminophen (Tylenol 325mg Tab) 650 mg PO Q6H PRN PRN Reason: Pain, moderate (4-7) Last Admin: 01/07/18 17:09 Dose: 650 mg Albuterol/Ipratropium (Duoneb 3 Mg/0.5 Mg (3 Ml) Ud) 3 ml IH [id number] PRN PRN Reason: Shortness of Breath Alprazolam (Xanax) 0.25 mg PO QID PRN; Protocol PRN Reason: Anxiety Stop: 01/13/18 08:01 Last Admin: 01/08/18 17:56 Dose: 0.25 mg Amoxicillin/Clavulanate Potassium (Augmentin 875 Mg-125 Mg Tab) 1 tab PO BID JOHN PRN Reason: Protocol Stop: 01/09/18 16:01 Last Admin: 01/09/18 08:37 Dose: 1 tab Chlorpromazine (Thorazine) 50 mg IM Q6H PRN; Protocol PRN Reason: Severe Agitation Chlorpromazine (Thorazine) 50 mg PO Q6H PRN; Protocol PRN Reason: Agitation Cyclobenzaprine HCl (Flexeril) 10 mg PO TID PRN PRN Reason: Other Last Admin: 01/07/18 17:10 Dose: 10 mg Docusate Sodium (Colace) 100 mg PO DAILY [facility] Last Admin: 01/09/18 08:39 Dose: 100 mg Famotidine (Pepcid) 20 mg PO DAILY [facility] Last Admin: 01/09/18 08:48 Dose: Not Given Gabapentin (Neurontin) 300 mg PO TID JOHN PRN Reason: Protocol Last Admin: 01/09/18 08:38 Dose: 300 mg Home Med (Home Med) 1 unit PO DAILY [facility] Last Admin: 01/09/18 08:40 Dose: 1 unit Lidocaine (Lidoderm) 2 ea TD DAILY [facility] Last Admin: 01/09/18 08:37 Dose: 2 ea [place] Carbonate ([place] Carbonate 300mg) 300 mg PO BID [facility] Last Admin: 01/09/18 08:38 Dose: 300 mg Lorazepam (Ativan) 2 mg IM Q6H PRN; Protocol PRN Reason: Severe Agitation Lorazepam (Ativan) 2 mg PO Q6H PRN; Protocol PRN Reason: Agitation Last Admin: 01/08/18 21:19 Dose: 2 mg Nicotine (Nicoderm Cq) 1 patch TD DAILY [facility] Last Admin: 01/09/18 08:37 Dose: 1 patch Quetiapine Fumarate (Seroquel Xr) 800 mg PO HS [facility] PRN Reason: Protocol Last Admin: 01/08/18 21:19 Dose: 800 mg Senna/Docusate Sodium (Senokot S 50 Mg-8.6 Mg) 2 tab PO DAILY [facility] Last Admin: 01/09/18 08:39 Dose: 2 tab Venlafaxine HCl (Effexor Xr) 300 mg PO DAILY [facility] Last Admin: 01/09/18 08:38 Dose: 300 mg Zolpidem Tartrate (Ambien) 5 mg PO HS PRN; Protocol PRN Reason: Insomnia Last Admin: 01/08/18 21:19 Dose: 5 mg - Labs Labs: 01/06/18 10:10 01/08/18 07:30 - Constitutional Appears: No Acute Distress, Chronically Ill - Head Exam Head Exam: ATRAUMATIC, NORMAL INSPECTION, NORMOCEPHALIC - Eye Exam Eye Exam: EOMI, Normal appearance. absent: Conjunctival injection, Scleral icterus - ENT Exam ENT Exam: Mucous Membranes Moist - Respiratory Exam Respiratory Exam: Chest Wall Tenderness, Decreased Breath Sounds, NORMAL BREATHING PATTERN. absent: Accessory Muscle Use, Rales, Rhonchi, Wheezes, Respiratory Distress - Cardiovascular Exam Cardiovascular Exam: RRR, +S1, +S2 - GI/Abdominal Exam GI & Abdominal Exam: Soft, Normal Bowel Sounds. absent: Firm, Guarding, Rigid, Tenderness - Rectal Exam Rectal Exam: Deferred - Extremities Exam Extremities Exam: Normal Capillary Refill, Normal Inspection. absent: Pedal Edema - Neurological Exam Neurological Exam: Alert, Awake, Oriented x3 - Psychiatric Exam Psychiatric exam: Depressed, Suicidal Ideation - Skin Skin Exam: Dry, Intact Assessment and Plan - Assessment and Plan (Free Text) Assessment: 47yo male PMHx bipolar disorder, anxiety, opioid use disorder, multiple psychiatric admissions, and multiple suicide attempts presented after heroin overdose. Patient was unresponsive in the field and CPR was performed and patient was stabilized. Patient complained of atypical chest pain and medicine team was consulted. ID was consulted for pneumonia and hx of HIV Plan: -Patient has hx of HIV Absolute Lymph: 1124 %CD4: 32 Absolute CD4: 360 T-help/suppress ratio: 0.60 %CD8: 53 Absolute CD8: 600 -Continue ART therapy Odefsey -Patient on Augmentin for possible PNA (continue 7 days of treatment) -Continue current management as per psych and medicine team Discussed with Dr. Bruno Benson PGY3 <Nikita Carr - Last Filed: 01/09/18 13:17> Objective - Vital Signs/Intake and Output Vital Signs (last 24 hours): Temp Pulse Resp BP Pulse Ox 98.1 F 96 H 20 106/69 94 L 01/09/18 06:55 01/09/18 06:55 01/09/18 06:55 01/09/18 06:55 01/05/18 22:35 - Medications Medications: Current Medications Acetaminophen (Tylenol 325mg Tab) 650 mg PO Q6H PRN PRN Reason: Pain, moderate (4-7) Last Admin: 01/07/18 17:09 Dose: 650 mg Albuterol/Ipratropium (Duoneb 3 Mg/0.5 Mg (3 Ml) Ud) 3 ml IH [id number] PRN PRN Reason: Shortness of Breath Alprazolam (Xanax) 0.25 mg PO QID PRN; Protocol PRN Reason: Anxiety Stop: 01/13/18 08:01 Last Admin: 01/09/18 11:23 Dose: 0.25 mg Amoxicillin/Clavulanate Potassium (Augmentin 875 Mg-125 Mg Tab) 1 tab PO BID [facility] PRN Reason: Protocol Stop: 01/09/18 16:01 Last Admin: 01/09/18 08:37 Dose: 1 tab Chlorpromazine (Thorazine) 50 mg IM Q6H PRN; Protocol PRN Reason: Severe Agitation Chlorpromazine (Thorazine) 50 mg PO Q6H PRN; Protocol PRN Reason: Agitation Cyclobenzaprine HCl (Flexeril) 10 mg PO TID PRN PRN Reason: Other Last Admin: 01/07/18 17:10 Dose: 10 mg Docusate Sodium (Colace) 100 mg PO DAILY [facility] Last Admin: 01/09/18 08:39 Dose: 100 mg Famotidine (Pepcid) 20 mg PO DAILY [facility] Last Admin: 01/09/18 08:48 Dose: Not Given Gabapentin (Neurontin) 300 mg PO TID [facility] PRN Reason: Protocol Last Admin: 01/09/18 08:38 Dose: 300 mg Home Med (Home Med) 1 unit PO DAILY [facility] Last Admin: 01/09/18 08:40 Dose: 1 unit Lidocaine (Lidoderm) 2 ea TD DAILY [facility] Last Admin: 01/09/18 08:37 Dose: 2 ea [place] Carbonate ([place] Carbonate 300mg) 300 mg PO BID [facility] Last Admin: 01/09/18 08:38 Dose: 300 mg Lorazepam (Ativan) 2 mg IM Q6H PRN; Protocol PRN Reason: Severe Agitation Lorazepam (Ativan) 2 mg PO Q6H PRN; Protocol PRN Reason: Agitation Last Admin: 01/08/18 21:19 Dose: 2 mg Nicotine (Nicoderm Cq) 1 patch TD DAILY [facility] Last Admin: 01/09/18 08:37 Dose: 1 patch Quetiapine Fumarate (Seroquel Xr) 800 mg PO HS [facility] PRN Reason: Protocol Last Admin: 01/08/18 21:19 Dose: 800 mg Senna/Docusate Sodium (Senokot S 50 Mg-8.6 Mg) 2 tab PO DAILY [facility] Last Admin: 01/09/18 08:39 Dose: 2 tab Venlafaxine HCl (Effexor Xr) 300 mg PO DAILY [facility] Last Admin: 01/09/18 08:38 Dose: 300 mg Zolpidem Tartrate (Ambien) 5 mg PO HS PRN; Protocol PRN Reason: Insomnia Last Admin: 01/08/18 21:19 Dose: 5 mg - Labs Labs: 01/06/18 10:10 01/08/18 07:30 Assessment and Plan - Assessment and Plan (Free Text) Plan: Infectious Diseases Attending Physician Addendum Patient seen and examined, discussed with medical office specialist. I have reviewed the pertinent clinical information for the patient, including history of present illness, medical, personal and social histories, lab results and imaging findings. I agree with the above findings, assessment and plan. In addition, will continue ART for chronic HIV infection. Continue Augmentin (Day 5 to complete 7 days) for possible aspiration pneumonia.
--- NOTE | 2018-01-09 14:27 | PCM.PYCHPN ---
Psychiatric Progress Note - Psychiatric Progress Note Patient seen today, length of contact: 30min Patient Chief Complaint: "I have a lot of regrets about decisions I made in the past" Problems Identified/Issues Discussed: Suicide/ homicide prevention, past psychiatric h/o, current psychiatric symptoms , medical problems, risk/benefits and alternatives of medications, medications compliance, coping strategies, substance abuse h/o, relapse prevention, importance of follow up with psychiatrist and therapist, discharge plan. Medical Problems: see medical and ID notes for more detailed information Diagnostic Results: 01/06/18 10:10 01/06/18 10:10 Lab Results 01/06/18 10:10: Free T4 0.93 01/06/18 10:10: Sodium 139, Potassium 4.0, Chloride 105, Carbon Dioxide 28, Anion Gap 10, BUN 9, Creatinine 0.8, Est GFR ( Amer) > 60, Est GFR (Non- Af Amer) > 60, Random Glucose 120 H, Calcium 9.2, Magnesium 1.7, Total Bilirubin 0.8, AST 101 H, ALT 128 H, Alkaline Phosphatase 230 H, Total Protein 6.7, Albumin 3.5, Globulin 3.2, Albumin/Globulin Ratio 1.1 01/06/18 10:10: WBC 3.9 L, RBC 3.65, Hgb 11.3 L, Hct 33.5 L, MCV 91.8, MCH 31.0 , MCHC 33.7, RDW 14.5, Plt Count 191, MPV 9.1, Gran % 57.3, Lymph % (Auto) 28.9 , Will % (Auto) 9.0 H, Eos % (Auto) 4.3, Baso % (Auto) 0.5, Gran # 2.24, Lymph # (Auto) 1.1 L, Will # (Auto) 0.4, Eos # (Auto) 0.2, Baso # (Auto) 0.02 01/06/18 07:15: RPR Nonreactive 01/06/18 07:15: TSH 3rd Generation 5.56 H 01/06/18 07:15: Fasting Glucose 90, Triglycerides 127, Cholesterol 150, LDL Cholesterol Direct 78, HDL Cholesterol 28 L Vital Signs Temp Pulse Pulse Resp BP Pulse Ox 01/07/18 06:57 98.5 F 93 H 20 119/73 01/06/18 16:16 95 H 18 116/71 01/06/18 06:50 97.6 F 72 20 116/64 01/06/18 00:00 95 H 20 01/05/18 22:35 98.1 F 95 H 20 131/73 94 L 01/05/18 22:04 98.4 F 97 H 18 112/73 95 DSM 5 Symptoms Update: shortly patient is 47 year old male, reported history of bipolar disorder, aanxiety, history of opioid use disorder, multiple psychiatric admissions in the past, multiple suicidal attempts more than 5, most recent was on first December 2017 while patient was in [facility] patient overdosed on hearing in a bags in order to harm himself,, patient had respiratory failure, required transfer to [facility] medical side, was stabilized from the medical standpoint, was willing to continue treatment on to the psychiatric inpatient unit and was transferred here [facility] for further evaluation and stabilization and medication adjustment. Patient obviously requires further observation and stabilization. pt was seen by yesterday. as per staff pt is self isolating,pt appears to be depressed. as per staff observation pt was attending groups, whenever his affect is more reactive he would excuse himself and leave the room seems like ashamed of his progress. pt was seen today in his room, same presentation, pt said that he is feeling a lot of regrets about his life. "I am not proud of my decisions". pt was provided emotional support and empathic listening. pt said he still feels very depressed "because I have nobody". reported to have suicidal ideation, no plan, no remorse for his suicidal attempt. denied psychosis. denied anxiety. pt c/o pain in his ribs, pt was seen by medical team, recommended tylenol, no acute issues, signed off. pt was seen by ID team, recommended to continue his HIV meds, will f/u. pt tolerates meds well, no side effects observed or reported, AIMS 0, no EPS. Impression: DSM 5 Diagnosis: as per history of bipolar disorder most recent episode depressed severe with no psychosis Opioid use disorder Anxiety disorder Medication Change: No (lithium started 01/07/18) Medical Record Reviewed: Yes Mental Status Examination - Cognitive Function Orientation: Person, Place, Situation Memory: Intact Attention: Poor Concentration: Poor Association: WNL Fund of Knowledge: WNL - Mood Mood: Depressed ("I am depressed, I do not feel any better") - Affect Affect: Flat - Formal Thought Process Formal Thought Process: No Impairment - Suicidal Ideation Suicidal Ideation: Yes - Homicidal Ideation Homicidal Ideation: No Goal/Treatment Plan - Goal/Treatment Plan Need for Continued Stay: Remain at risks for inpatient hospitalization, Severe depression anxiety, Discharge may exacerbated symptoms, Severe functional impairment Progress Toward Problem(s) and Goals/Treatment Plan: mmilieu, structure, supportive therapy medication list from [facility] reviewed patient was on following medications: Alprazolam 0.25 mg 4 times a day as needed effexor 300mg po daily for depression/anxiety Augmentin 875/125y mouth twice a day Wodmsgbiuf-Flsfgbpz-Wuwfgu Ala by mouth daily Gabapentin 300 mg 3 times a day Lidocaine 4% patch 2 patches daily Nicoderm 21 mg daily Seroquel 800mg hs as a mood stabilizer lithium 300mg po bid for bipolar disorder and prevent suicidality [facility] Recommended: increase activity as tolerated continue spirometry augmentin for 7days total XR f/u in 4-6weeks continue antiretroviral meds Medical consult called ID consult called SW consultation for discharge plan and social issues Family involvement Follow up on labs Will monitor closely Pt was educated about risk/benefits and alternatives of medications, coping strategies (safety plan, suicide prevention), relapse prevention, importance of follow up with psychiatrist and therapist, stay away from drugs/alcohol/smoking Estimated Date of D/C: 01/13/18
[2018-01-09] MEDS: QUEtiapine 200 mg XR Tab PO SCH (21:15)
--- NOTE | 2018-01-09 23:08 | PN ---
DATE: 01/09/[address] Koehler. This dictation is being performed on 01/09 - the patient who is evaluated on 01/08, but due to mechanical difficulties, it could not be dictated until 01/09. SUBJECTIVE: The patient is a 47-year-old male with a history of depression, bipolar disorder, substance use disorder and anxiety. He indicated that he was having very depressed with suicidal thoughts and felt he was not feeling any better and was having thoughts of hurting himself, "suicide by caps." He had recently overdosed on heroin (snorting) and had initially been transferred and had initially been treated at [facility] where he overdosed with a "friend" who assisted him by sneaking heroin into the psychiatric facility. The patient has been clean for a month prior to that. He denied other drug use. He indicated that he had been hospitalized more than 10 times, most recently at [facility] (in [place]) this past August (2017) and has been in rehabilitation in [place] in 1999. He has been under the care of a psychiatrist, Dr. Mojica in [facility], but stopped taking his medication with he indicating that they were recently stalled and he was unable to get it refills because it was in the beginning of the month and his insurance would not pay for it and thus he could not get supply which then lapsed. The patient stated that he had been born in [place], [place]. He does have a history of incarceration for selling drugs in 2004 and served 5 years incarceration in [facility] longterm. He indicated that he is with his presently, hospitalized psychiatrically. The couple has a 7-year-old child who was and had been adopted. The patient indicates he feels horrible about this. He indicated that his mother and grandmother also had the psychiatric issues. LABORATORY DATA: On 01/06, his hemoglobin is 11.3, hematocrit 33.5. His ALT has been elevated at 87 and alkaline phosphatase is 182. His AST had previously been elevated at . PHYSICAL EXAMINATION VITAL SIGNS: Blood pressure is 114/72. The patient has been maintained psychotropically on Ativan p.r.n., Effexor 300 mg daily, Flexeril 10 mg t.i.d. p.r.n., lithium 300 mg b.i.d., Neurontin 300 mg t.i.d., Seroquel 800 mg at bedtime. Sergey Loera MD/ PhD
[2018-01-10] MEDS: Venlafaxine 75 mg ER Cap PO SCH (08:08)
[2018-01-10] MEDS: Docusate-Senna 50 mg-8.6 mg Tab PO SCH (08:09)
[2018-01-10] MEDS: ODEFSEY PO SCH (08:09)
[2018-01-10] MEDS: Lidocaine 5% Patch TD SCH (08:10)
--- NOTE | 2018-01-10 08:33 | PCM.PYCHPN ---
Psychiatric Progress Note - Psychiatric Progress Note Patient seen today, length of contact: 30min Problems Identified/Issues Discussed: PROGRESS NOTE I reviewed recent notes and met with patient at bedside again. He is alert and well-oriented to circumstances, month, year and location. Patient still appears apathetic and mildly disengaged during my questioning. He indicates that he remains depressed and hopeless--without much change in symptoms over the weekend. He denies having any suicidal thoughts at this time. Staff notes indicate that he appears depressed on the unit and stays in his room. He did attend a group yesterday. Patient denies any new concerns, discomfort or pain and indicates that sleep was restless last night. There have been no behavioral issues over the weekend thus far. Diagnostic Results: as per history of bipolar disorder most recent episode depressed severe with no psychosis Opioid use disorder Anxiety disorder Medication Change: Yes (Ambien increased) Medical Record Reviewed: Yes Mental Status Examination - Cognitive Function Orientation: Person, Place, Situation Memory: Intact Attention: WNL Concentration: Poor Association: WNL Fund of Knowledge: WNL - Mood Mood: Depressed ("I am depressed, I do not feel any better") - Affect Affect: Constricted, Flat - Speech Speech: Soft - Formal Thought Process Formal Thought Process: No Impairment - Suicidal Ideation Suicidal Ideation: No - Homicidal Ideation Homicidal Ideation: No Goal/Treatment Plan - Goal/Treatment Plan Need for Continued Stay: Remain at risks for inpatient hospitalization, Severe depression anxiety, Discharge may exacerbated symptoms, Severe functional impairment Progress Toward Problem(s) and Goals/Treatment Plan: * c/w current tx and plan * Increased ambien to 10 mg po HS prn for restless sleep on 01/11/18 * Appreciate f/u by Dr. Chau on 01/10/18~no new recommendations * No new weekend labs results * Vitals reviewed and noted below: Selected Entries 01/11/18 07:10 Temperature 97.8 F Pulse Rate 84 Respiratory 20 Rate Blood Pressure 117/73 Estimated Date of D/C: 01/13/18
--- NOTE | 2018-01-10 13:43 | PN ---
DATE: 01/10/2018 SUBJECTIVE: The patient is in bed, in no acute distress. PHYSICAL EXAMINATION: VITAL SIGNS: Temperature is 98, blood pressure is 106/70, respiratory rate of 20, heart rate of 96. HEENT: Examination of HEENT is unremarkable. NECK: Supple. LUNGS: Have decreased breath sounds. HEART: Normal S1 and S2. ABDOMEN: Soft. LABORATORY DATA: Laboratory examination reveals a white count of 3.9, hemoglobin 11, platelets of 191. Chemistries are noted. Immunology is noted. Absolute CD4 count of 360. PCR of 1.59 logs. ASSESSMENT AND PLAN: A 47-year-old male, seen in the psychiatric floor this morning with bipolar disorder, anxiety, opiate use. Admitted also with hepatitis C on the psychiatric floor. We will continue the , the patient's human immunodeficiency virus medication. The patient to follow up his human immunodeficiency virus provider upon discharge. Douglas Chau MD
[2018-01-10] MEDS: QUEtiapine 200 mg XR Tab PO SCH (21:27)
[2018-01-11] MEDS: Venlafaxine 75 mg ER Cap PO SCH (09:02)
[2018-01-11] MEDS: Docusate-Senna 50 mg-8.6 mg Tab PO SCH (09:03)
[2018-01-11] MEDS: ODEFSEY PO SCH (09:04)
[2018-01-11] MEDS: Lidocaine 5% Patch TD SCH (11:30)
--- NOTE | 2018-01-11 16:16 | PN ---
DATE: 01/11/2018 SUBJECTIVE: The patient is in bed, in no acute distress, nontoxic. PHYSICAL EXAMINATION: VITAL SIGNS: On exam, temperature is 98, blood pressure is 106/70, respiratory rate of 16. HEENT: Examination of HEENT is unremarkable. NECK: Supple. LUNGS: Have decreased breath sounds. HEART: Normal S1, S2. ABDOMEN: Soft, nontender. LABORATORY DATA: Laboratory examination reveals a white count of 3.9, hemoglobin 11, platelets of 191. Chemistries reveals a BUN of 20, creatinine of 0.8. LFTs are noted. Immunology is noted. T cells are noted. Serology is reviewed. ASSESSMENT AND PLAN: A 47-year-old male with history of obesity, body mass index of 32; history of positive human immunodeficiency virus, in the psychiatric floor, admitted also with hepatitis C. Currently on the Odefsey for his human immunodeficiency virus. We will continue human immunodeficiency virus care and follow up with his human immunodeficiency virus provider as outpatient upon discharge. Douglas Chau MD
[2018-01-11] MEDS: QUEtiapine 200 mg XR Tab PO SCH (21:19)
--- NOTE | 2018-01-12 08:47 | CP.PCM.PN ---
<Tabatha Benson - Last Filed: 01/12/18 14:05> Subjective - Date & Time of Evaluation Date of Evaluation: 01/12/18 Time of Evaluation: 08:47 - Subjective Subjective: [id number] ID Progress note for Dr. Carr Patient seen and examined at bedside. Nursing reported no acute events overnight. Patient reports his "rib pain" has improved greatly. He complained of some mild SOB when lying flat but no cough or wheezing. He denied any fever, chills, headache, dizziness, palpitations, SOB, cough, abd pain, nausea, vomiting, bowel/bladder complaints, pain/swelling in his legs b/l. He is ambulating around the floor and eating his meals. Objective - Vital Signs/Intake and Output Vital Signs (last 24 hours): Temp Pulse Resp BP Pulse Ox 97.7 F 81 20 114/76 94 L 01/12/18 07:22 01/12/18 07:22 01/12/18 07:22 01/12/18 07:22 01/05/18 22:35 - Medications Medications: Current Medications Acetaminophen (Tylenol 325mg Tab) 650 mg PO Q6H PRN PRN Reason: Pain, moderate (4-7) Last Admin: 01/12/18 05:48 Dose: 650 mg Albuterol/Ipratropium (Duoneb 3 Mg/0.5 Mg (3 Ml) Ud) 3 ml IH [id number] PRN PRN Reason: Shortness of Breath Alprazolam (Xanax) 0.25 mg PO QID PRN; Protocol PRN Reason: Anxiety Stop: 01/13/18 08:01 Last Admin: 01/12/18 05:48 Dose: 0.25 mg Chlorpromazine (Thorazine) 50 mg IM Q6H PRN; Protocol PRN Reason: Severe Agitation Chlorpromazine (Thorazine) 50 mg PO Q6H PRN; Protocol PRN Reason: Agitation Cyclobenzaprine HCl (Flexeril) 10 mg PO TID PRN PRN Reason: Other Last Admin: 01/07/18 17:10 Dose: 10 mg Docusate Sodium (Colace) 100 mg PO DAILY [facility] Last Admin: 01/11/18 09:03 Dose: 100 mg Famotidine (Pepcid) 20 mg PO DAILY [facility] Last Admin: 01/11/18 09:04 Dose: Not Given Gabapentin (Neurontin) 300 mg PO TID [facility] PRN Reason: Protocol Last Admin: 01/11/18 17:55 Dose: 300 mg Home Med (Home Med) 1 unit PO DAILY [facility] Last Admin: 01/11/18 09:04 Dose: 1 unit Lidocaine (Lidoderm) 2 ea TD DAILY [facility] Last Admin: 01/11/18 11:30 Dose: 1 ea [place] Carbonate ([place] Carbonate 300mg) 300 mg PO BID [facility] Last Admin: 01/11/18 17:55 Dose: 300 mg Lorazepam (Ativan) 2 mg IM Q6H PRN; Protocol PRN Reason: Severe Agitation Lorazepam (Ativan) 2 mg PO Q6H PRN; Protocol PRN Reason: Agitation Last Admin: 01/11/18 21:19 Dose: 2 mg Nicotine (Nicoderm Cq) 1 patch TD DAILY [facility] Last Admin: 01/11/18 11:30 Dose: 1 patch Quetiapine Fumarate (Seroquel Xr) 800 mg PO HS [facility] PRN Reason: Protocol Last Admin: 01/11/18 21:19 Dose: 800 mg Senna/Docusate Sodium (Senokot S 50 Mg-8.6 Mg) 2 tab PO DAILY [facility] Last Admin: 01/11/18 09:03 Dose: 2 tab Venlafaxine HCl (Effexor Xr) 300 mg PO DAILY [facility] Last Admin: 01/11/18 09:02 Dose: 300 mg Zolpidem Tartrate (Ambien) 10 mg PO HS PRN; Protocol PRN Reason: Insomnia Last Admin: 01/11/18 21:23 Dose: 10 mg - Labs Labs: 01/06/18 10:10 01/08/18 07:30 - Constitutional Appears: Non-toxic, No Acute Distress - Head Exam Head Exam: ATRAUMATIC, NORMAL INSPECTION, NORMOCEPHALIC - Eye Exam Eye Exam: EOMI, Normal appearance. absent: Conjunctival injection, Scleral icterus - ENT Exam ENT Exam: Mucous Membranes Moist - Neck Exam Neck Exam: Full ROM, Normal Inspection - Respiratory Exam Respiratory Exam: Clear to Ausculation Bilateral, NORMAL BREATHING PATTERN. absent: Accessory Muscle Use, Rales, Rhonchi, Wheezes, Respiratory Distress - Cardiovascular Exam Cardiovascular Exam: REGULAR RHYTHM, +S1, +S2. absent: Murmur - GI/Abdominal Exam GI & Abdominal Exam: Soft, Normal Bowel Sounds. absent: Firm, Guarding, Rigid, Tenderness - Rectal Exam Rectal Exam: Deferred - Extremities Exam Extremities Exam: Normal Inspection. absent: Pedal Edema - Neurological Exam Neurological Exam: Alert, Awake, Oriented x3 - Skin Skin Exam: Dry, Intact, Normal Color, Warm Assessment and Plan - Assessment and Plan (Free Text) Assessment: 47yo male PMHx bipolar disorder, anxiety, opioid use disorder, multiple psychiatric admissions, and multiple suicide attempts presented after heroin overdose. Patient was unresponsive in the field and CPR was performed and patient was stabilized. Patient complained of atypical chest pain and medicine team was consulted. ID was consulted for pneumonia and hx of HIV Plan: -Patient has hx of HIV Absolute Lymph: 1124 %CD4: 32 Absolute CD4: 360 T-help/suppress ratio: 0.60 %CD8: 53 Absolute CD8: 600 -Continue ART therapy [place] -Patient completed 7 days of Augmentin for possible PNA -Continue current management as per psych and medicine team ID will sign off at this time Discussed with Dr. Bruno Benson PGY3 <Nikita Carr - Last Filed: 01/12/18 15:04> Objective - Vital Signs/Intake and Output Vital Signs (last 24 hours): Temp Pulse Resp BP Pulse Ox 97.7 F 81 20 114/76 94 L 01/12/18 07:22 01/12/18 07:22 01/12/18 07:22 01/12/18 07:22 01/05/18 22:35 - Medications Medications: Current Medications Acetaminophen (Tylenol 325mg Tab) 650 mg PO Q6H PRN PRN Reason: Pain, moderate (4-7) Last Admin: 01/12/18 05:48 Dose: 650 mg Albuterol/Ipratropium (Duoneb 3 Mg/0.5 Mg (3 Ml) Ud) 3 ml IH [id number] PRN PRN Reason: Shortness of Breath Alprazolam (Xanax) 0.25 mg PO QID PRN; Protocol PRN Reason: Anxiety Stop: 01/13/18 08:01 Last Admin: 01/12/18 05:48 Dose: 0.25 mg Chlorpromazine (Thorazine) 50 mg IM Q6H PRN; Protocol PRN Reason: Severe Agitation Chlorpromazine (Thorazine) 50 mg PO Q6H PRN; Protocol PRN Reason: Agitation Cyclobenzaprine HCl (Flexeril) 10 mg PO TID PRN PRN Reason: Other Last Admin: 01/07/18 17:10 Dose: 10 mg Docusate Sodium (Colace) 100 mg PO DAILY [facility] Last Admin: 01/12/18 09:56 Dose: 100 mg Famotidine (Pepcid) 20 mg PO DAILY [facility] Last Admin: 01/12/18 10:51 Dose: Not Given Gabapentin (Neurontin) 300 mg PO TID [facility] PRN Reason: Protocol Last Admin: 01/12/18 13:38 Dose: 300 mg Home Med (Home Med) 1 unit PO DAILY [facility] Last Admin: 01/12/18 09:54 Dose: 1 unit Lidocaine (Lidoderm) 2 ea TD DAILY [facility] Last Admin: 01/12/18 09:53 Dose: 1 ea [place] Carbonate ([place] Carbonate 300mg) 300 mg PO BID [facility] Last Admin: 01/12/18 09:54 Dose: 300 mg Lorazepam (Ativan) 2 mg IM Q6H PRN; Protocol PRN Reason: Severe Agitation Lorazepam (Ativan) 2 mg PO Q6H PRN; Protocol PRN Reason: Agitation Last Admin: 01/12/18 09:55 Dose: 2 mg Nicotine (Nicoderm Cq) 1 patch TD DAILY [facility] Last Admin: 01/12/18 09:52 Dose: 1 patch Quetiapine Fumarate (Seroquel Xr) 800 mg PO HS [facility] PRN Reason: Protocol Last Admin: 01/11/18 21:19 Dose: 800 mg Senna/Docusate Sodium (Senokot S 50 Mg-8.6 Mg) 2 tab PO DAILY [facility] Last Admin: 01/12/18 09:55 Dose: 2 tab Venlafaxine HCl (Effexor Xr) 300 mg PO DAILY [facility] Last Admin: 01/12/18 09:54 Dose: 300 mg Zolpidem Tartrate (Ambien) 10 mg PO HS PRN; Protocol PRN Reason: Insomnia Last Admin: 01/11/18 21:23 Dose: 10 mg - Labs Labs: 01/06/18 10:10 01/08/18 07:30 Assessment and Plan - Assessment and Plan (Free Text) Plan: Infectious Diseases Attending Physician Addendum Patient seen and examined, discussed with medical associate. I have reviewed the pertinent clinical information for the patient, including history of present illness, medical, personal and social histories, lab results and imaging findings. I agree with the above findings, assessment and plan. In addition, will continue ART for chronic HIV infection. Has completed course of Augmentin for possible aspiration pneumonia.
[2018-01-12] MEDS: Lidocaine 5% Patch TD SCH (09:53)
[2018-01-12] MEDS: ODEFSEY PO SCH (09:54)
[2018-01-12] MEDS: Venlafaxine 75 mg ER Cap PO SCH (09:54)
[2018-01-12] MEDS: Docusate-Senna 50 mg-8.6 mg Tab PO SCH (09:55)
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
[2018-01-12] MEDS: QUEtiapine 200 mg XR Tab PO SCH (21:19)
[2018-01-13] MEDS: Venlafaxine 75 mg ER Cap PO SCH (08:57)
[2018-01-13] MEDS: Docusate-Senna 50 mg-8.6 mg Tab PO SCH (08:58)
[2018-01-13] MEDS: Lidocaine 5% Patch TD SCH (08:59)
[2018-01-13] MEDS: ODEFSEY PO SCH (08:59)
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
[2018-01-13] MEDS: QUEtiapine 200 mg XR Tab PO SCH (21:38)
[2018-01-14 07:09] VITALS: RESP 20
--- NOTE | 2018-01-14 08:35 | CP.PCM.PN ---
<Tabatha Benson - Last Filed: 01/14/18 12:03> Subjective - Date & Time of Evaluation Date of Evaluation: 01/14/18 Time of Evaluation: 08:35 - Subjective Subjective: [id number] ID Progress note for Dr. Carr Patient seen and examined sitting up in chair in TV room. Nursing reported no acute events overnight. Patient reported feeling much better and that his breathing had greatly improved. Denied acute complaints of fever, chills, headache, dizziness, chest pain, palpitations, SOB, cough, abd pain, nausea, vomiting, bowel/bladder complaints, pain/swelling in legs b/l. Patient is eating well and ambulating around the floors. Objective - Vital Signs/Intake and Output Vital Signs (last 24 hours): Temp Pulse Resp BP Pulse Ox 97.4 F L 83 20 108/72 94 L 01/14/18 07:08 01/14/18 07:08 01/14/18 07:08 01/14/18 07:08 01/05/18 22:35 - Medications Medications: Current Medications Acetaminophen (Tylenol 325mg Tab) 650 mg PO Q6H PRN PRN Reason: Pain, moderate (4-7) Last Admin: 01/13/18 05:25 Dose: 650 mg Albuterol/Ipratropium (Duoneb 3 Mg/0.5 Mg (3 Ml) Ud) 3 ml IH [id number] PRN PRN Reason: Shortness of Breath Chlorpromazine (Thorazine) 50 mg IM Q6H PRN; Protocol PRN Reason: Severe Agitation Chlorpromazine (Thorazine) 50 mg PO Q6H PRN; Protocol PRN Reason: Agitation Cyclobenzaprine HCl (Flexeril) 10 mg PO TID PRN PRN Reason: Other Last Admin: 01/14/18 04:08 Dose: 10 mg Docusate Sodium (Colace) 100 mg PO DAILY [facility] Last Admin: 01/13/18 08:58 Dose: 100 mg Famotidine (Pepcid) 20 mg PO [facility]ILY [facility] Last Admin: 01/13/18 09:02 Dose: Not Given Gabapentin (Neurontin) 300 mg PO TID JOHN PRN Reason: Protocol Last Admin: 01/13/18 18:48 Dose: 300 mg Home Med (Home Med) 1 unit PO DAILY [facility] Last Admin: 01/13/18 08:59 Dose: 1 unit Lidocaine (Lidoderm) 2 ea TD DAILY [facility] Last Admin: 01/13/18 08:59 Dose: 2 ea [place] Carbonate ([place] Carbonate 300mg) 300 mg PO BID [facility] Last Admin: 01/13/18 16:28 Dose: 300 mg [place] Carbonate ([place] Carbonate 300mg) 300 mg PO HS [facility] Last Admin: 01/13/18 23:41 Dose: 300 mg Lorazepam (Ativan) 2 mg IM Q6H PRN; Protocol PRN Reason: Severe Agitation Lorazepam (Ativan) 2 mg PO Q6H PRN; Protocol PRN Reason: Agitation Last Admin: 01/14/18 04:08 Dose: 2 mg Nicotine (Nicoderm Cq) 1 patch TD [facility]ILY [facility] Last Admin: 01/13/18 09:00 Dose: 1 patch Quetiapine Fumarate (Seroquel Xr) 800 mg PO HS [facility] PRN Reason: Protocol Last Admin: 01/13/18 21:38 Dose: 800 mg Senna/Docusate Sodium (Senokot S 50 Mg-8.6 Mg) 2 tab PO [facility]ILY [facility] Last Admin: 01/13/18 08:58 Dose: 2 tab Tramadol HCl (Ultram) 50 mg PO TID PRN PRN Reason: severe pain >=7/10 Last Admin: 01/13/18 18:50 Dose: 50 mg Venlafaxine HCl (Effexor Xr) 300 mg PO [facility]ILY [facility] Last Admin: 01/13/18 08:57 Dose: 300 mg Zolpidem Tartrate (Ambien) 10 mg PO HS PRN; Protocol PRN Reason: Insomnia Last Admin: 01/13/18 21:39 Dose: 10 mg - Labs Labs: 01/06/18 10:10 01/08/18 07:30 - Constitutional Appears: Non-toxic, No Acute Distress - Head Exam Head Exam: ATRAUMATIC, NORMAL INSPECTION, NORMOCEPHALIC - Eye Exam Eye Exam: EOMI, Normal appearance, PERRL. absent: Conjunctival injection, Scleral icterus - ENT Exam ENT Exam: Mucous Membranes Moist - Neck Exam Neck Exam: Full ROM, Normal Inspection - Respiratory Exam Respiratory Exam: Clear to Ausculation Bilateral, NORMAL BREATHING PATTERN. absent: Accessory Muscle Use, Rales, Rhonchi, Wheezes, Respiratory Distress - Cardiovascular Exam Cardiovascular Exam: REGULAR RHYTHM, RRR, +S1, +S2 - GI/Abdominal Exam GI & Abdominal Exam: Soft, Normal Bowel Sounds. absent: Firm, Guarding, Rigid, Tenderness - Rectal Exam Rectal Exam: Deferred - Extremities Exam Extremities Exam: Normal Capillary Refill, Normal Inspection. absent: Pedal Edema - Neurological Exam Neurological Exam: Alert, Awake, CN II-XII Intact, Oriented x3 - Psychiatric Exam Psychiatric exam: Normal Affect, Normal Mood - Skin Skin Exam: Dry, Intact, Normal Color, Warm Assessment and Plan - Assessment and Plan (Free Text) Assessment: 47yo male PMHx bipolar disorder, anxiety, opioid use disorder, multiple psychiatric admissions, and multiple suicide attempts presented after heroin overdose. Patient was unresponsive in the field and CPR was performed and patient was stabilized. Patient complained of atypical chest pain and medicine team was consulted. ID was consulted for pneumonia and hx of HIV Plan: -Patient completed 7 days of Augmentin for possible PNA and is doing well- afebrile and clinically improved -Patient has hx of HIV Absolute Lymph: 1124 %CD4: 32 Absolute CD4: 360 T-help/suppress ratio: 0.60 %CD8: 53 Absolute CD8: 600 -Continue ART therapy [facility] -Continue current management as per primary team -Upon discharge patient to f/u outpatient with HIV provider Discussed with Dr. Bruno Benson PGY3 <Nikita Carr - Last Filed: 01/14/18 14:45> Objective - Vital Signs/Intake and Output Vital Signs (last 24 hours): Temp Pulse Resp BP Pulse Ox 97.4 F L 83 20 108/72 94 L 01/14/18 07:08 01/14/18 07:08 01/14/18 07:08 01/14/18 07:08 01/05/18 22:35 - Medications Medications: Current Medications Acetaminophen (Tylenol 325mg Tab) 650 mg PO Q6H PRN PRN Reason: Pain, moderate (4-7) Last Admin: 01/13/18 05:25 Dose: 650 mg Albuterol/Ipratropium (Duoneb 3 Mg/0.5 Mg (3 Ml) Ud) 3 ml IH [id number] PRN PRN Reason: Shortness of Breath Chlorpromazine (Thorazine) 50 mg IM Q6H PRN; Protocol PRN Reason: Severe Agitation Chlorpromazine (Thorazine) 50 mg PO Q6H PRN; Protocol PRN Reason: Agitation Cyclobenzaprine HCl (Flexeril) 10 mg PO TID PRN PRN Reason: Other Last Admin: 01/14/18 04:08 Dose: 10 mg Docusate Sodium (Colace) 100 mg PO [facility] Last Admin: 01/14/18 09:27 Dose: 100 mg Famotidine (Pepcid) 20 mg PO [facility] Last Admin: 01/14/18 09:40 Dose: Not Given Gabapentin (Neurontin) 300 mg PO TID [facility] PRN Reason: Protocol Last Admin: 01/14/18 13:29 Dose: 300 mg Home Med (Home Med) 1 unit PO [facility] Last Admin: 01/14/18 09:31 Dose: 1 unit Lidocaine (Lidoderm) 2 ea TD [facility] Last Admin: 01/14/18 09:35 Dose: 2 ea [place] Carbonate ([place] Carbonate 300mg) 300 mg PO BID [facility] Last Admin: 01/14/18 09:28 Dose: 300 mg [place] Carbonate ([place] Carbonate 300mg) 300 mg PO HS [facility] Last Admin: 01/13/18 23:41 Dose: 300 mg Lorazepam (Ativan) 2 mg IM Q6H PRN; Protocol PRN Reason: Severe Agitation Lorazepam (Ativan) 2 mg PO Q6H PRN; Protocol PRN Reason: Agitation Last Admin: 01/14/18 13:28 Dose: 2 mg Nicotine (Nicoderm Cq) 1 patch TD [facility] Last Admin: 01/14/18 09:25 Dose: 1 patch Quetiapine Fumarate (Seroquel Xr) 800 mg PO [facility] PRN Reason: Protocol Last Admin: 01/13/18 21:38 Dose: 800 mg Senna/Docusate Sodium (Senokot S 50 Mg-8.6 Mg) 2 tab PO [facility]ILY [facility] Last Admin: 01/14/18 09:26 Dose: 2 tab Tramadol HCl (Ultram) 50 mg PO TID PRN PRN Reason: severe pain >=7/10 Last Admin: 01/14/18 09:33 Dose: 50 mg Venlafaxine HCl (Effexor Xr) 300 mg PO [facility] Last Admin: 01/14/18 09:27 Dose: 300 mg Zolpidem Tartrate (Ambien) 10 mg PO HS PRN; Protocol PRN Reason: Insomnia Last Admin: 01/13/18 21:39 Dose: 10 mg - Labs Labs: 01/06/18 10:10 01/08/18 07:30 Assessment and Plan - Assessment and Plan (Free Text) Plan: Infectious diseases attending physician addendum Patient discussed with medical research scientist. I have reviewed the pertinent clinical information. I agree with the above findings, assessment and plan and in addition, continue ART for chronic HIV infection. Should follow up with his HIV provider as an outpatient. Patient is S/P treatment with Augmentin for possible aspiration pneumonia.
--- NOTE | 2018-01-14 08:37 | PN ---
DATE: 01/13/2018 SUBJECTIVE: The patient is in bed, in no acute distress, nontoxic. PHYSICAL EXAMINATION: VITAL SIGNS: The patient's temperature is 98, blood pressure is 120/60, respiratory rate of 18. HEENT: Unremarkable. NECK: Supple. LUNGS: Decreased breath sounds. HEART: Normal S1, S2. ABDOMEN: Soft. LABORATORY EXAMINATION: Reveals a white count of 3.9, hemoglobin of 11, platelets of 191. Chemistries are noted. Toxicology is noted. Immunology is reviewed. ASSESSMENT AND PLAN: A 47-year-old male with history of obesity, body mass index of 32, positive human immunodeficiency virus, also with hepatitis C, currently in the psychiatric floor, on the [place] for his human immunodeficiency virus. He will follow up with his human immunodeficiency virus care with his human immunodeficiency virus care provider. He is tolerating the medications well. We will follow with you. Douglas Chau MD
[2018-01-14] MEDS: Docusate-Senna 50 mg-8.6 mg Tab PO SCH (09:26)
[2018-01-14] MEDS: Venlafaxine 75 mg ER Cap PO SCH (09:27)
[2018-01-14] MEDS: ODEFSEY PO SCH (09:31)
[2018-01-14] MEDS: Lidocaine 5% Patch TD SCH (09:35)
--- NOTE | 2018-01-14 15:50 | PCM.PYCHPN ---
Psychiatric Progress Note - Psychiatric Progress Note Patient seen today, length of contact: 30min Patient Chief Complaint: "I feel better, I learned a lot from this admission, I know that I need to stay sober, I also know that I need to stay off drugs, you do not need to be concern about me or others, I am feeling GOOD". Problems Identified/Issues Discussed: Suicide/ homicide prevention, past psychiatric h/o, current psychiatric symptoms , medical problems, risk/benefits and alternatives of medications, medications compliance, coping strategies, substance abuse h/o, relapse prevention, importance of follow up with psychiatrist and therapist, discharge plan. Medical Problems: see medical and ID notes for more detailed information Diagnostic Results: 01/06/18 10:10 01/06/18 10:10 Lab Results 01/06/18 10:10: Free T4 0.93 01/06/18 10:10: Sodium 139, Potassium 4.0, Chloride 105, Carbon Dioxide 28, Anion Gap 10, BUN 9, Creatinine 0.8, Est GFR ( Amer) > 60, Est GFR (Non- Af Amer) > 60, Random Glucose 120 H, Calcium 9.2, Magnesium 1.7, Total Bilirubin 0.8, AST 101 H, ALT 128 H, Alkaline Phosphatase 230 H, Total Protein 6.7, Albumin 3.5, Globulin 3.2, Albumin/Globulin Ratio 1.1 01/06/18 10:10: WBC 3.9 L, RBC 3.65, Hgb 11.3 L, Hct 33.5 L, MCV 91.8, MCH 31.0 , MCHC 33.7, RDW 14.5, Plt Count 191, MPV 9.1, Gran % 57.3, Lymph % (Auto) 28.9 , [place] % (Auto) 9.0 H, Eos % (Auto) 4.3, Baso % (Auto) 0.5, Gran # 2.24, Lymph # (Auto) 1.1 L, [place] # (Auto) 0.4, Eos # (Auto) 0.2, Baso # (Auto) 0.02 01/06/18 07:15: RPR Nonreactive 01/06/18 07:15: TSH 3rd Generation 5.56 H 01/06/18 07:15: Fasting Glucose 90, Triglycerides 127, Cholesterol 150, LDL Cholesterol Direct 78, HDL Cholesterol 28 L Vital Signs Temp Pulse Pulse Resp BP Pulse Ox 01/07/18 06:57 98.5 F 93 H 20 119/73 01/06/18 16:16 95 H 18 116/71 01/06/18 06:50 97.6 F 72 20 116/64 01/06/18 00:00 95 H 20 01/05/18 22:35 98.1 F 95 H 20 131/73 94 L 01/05/18 22:04 98.4 F 97 H 18 112/73 95 Temp Pulse Resp BP Pulse Ox 97.7 F 81 20 114/76 94 L 01/12/18 07:22 01/12/18 07:22 01/12/18 07:22 01/12/18 07:22 01/05/18 22:35 Temp Pulse Resp BP Pulse Ox 97.8 F 84 18 108/70 94 L 01/13/18 07:00 01/13/18 07:00 01/13/18 07:00 01/13/18 07:00 01/05/18 22:35 DSM 5 Symptoms Update: shortly patient is 47 year old male, reported history of bipolar disorder, aanxiety, history of opioid use disorder, multiple psychiatric admissions in the past, multiple suicidal attempts more than 5, most recent was on December 2017 while patient was in [facility] patient overdosed on hearing in a bags in order to harm himself,, patient had respiratory failure, required transfer to [facility] medical side, was stabilized from the medical standpoint, was willing to continue treatment on to the psychiatric inpatient unit and was transferred here [facility] for further evaluation and stabilization and medication adjustment. Patient obviously requires further observation and stabilization. as per staff pt is more visible in the unit, affect is reactive, no agitation or aggression, pt's sleep is good, "slept through the night", good appetite, pt is pleasant. patient was seen today at the treatment team meeting pt reported he feels better , patient adamantly denied thoughts of harming himself or others, patient knows that he needs to stay sober, patient remembers all of his doctor's name as well as clinics where he needs to follow up for his medical issues, as well as hepatitis C as well as a MANDY status. Patient sounded more optimistic, denied any thoughts or plan to harm himself or others. patient said that he will stay with his friends, does not want to have boarding home referral. pt tolerates meds well, no side effects observed or reported, AIMS 0, no EPS. Impression: DSM 5 Diagnosis: as per history of bipolar disorder most recent episode depressed severe with no psychosis Opioid use disorder Anxiety disorder Medication Change: No (stable) Medical Record Reviewed: Yes Mental Status Examination - Cognitive Function Orientation: Person, Place, Situation Memory: Intact Attention: WNL Concentration: WNL Association: WNL Fund of Knowledge: WNL - Mood Mood: Depressed (I feel better) - Affect Affect: Constricted (bbut more reactive and mood congruent) - Speech Speech: Soft - Formal Thought Process Formal Thought Process: No Impairment - Suicidal Ideation Suicidal Ideation: No - Homicidal Ideation Homicidal Ideation: No Goal/Treatment Plan - Goal/Treatment Plan Need for Continued Stay: Remain at risks for inpatient hospitalization, Severe depression anxiety, Discharge may exacerbated symptoms, Severe functional impairment Progress Toward Problem(s) and Goals/Treatment Plan: [place]ilieu, structure, supportive therapy medication list from [facility] reviewed patient was on following medications: Alprazolam 0.25 mg 4 times a day as needed effexor 300mg po daily for depression/anxiety Augmentin 875/125y mouth twice a day Obxehpuhvg-Djydeino-Yrnxwp Ala by mouth daily Gabapentin 300 mg 3 times a day Lidocaine 4% patch 2 patches daily Nicoderm 21 mg daily Seroquel 800mg hs as a mood stabilizer lithium 300mg po tid for bipolar disorder and prevent suicidality lithium level tomorrow 01/13/18 0.3 [facility] Recommended: increase activity as tolerated continue spirometry augmentin for 7days total XR f/u in 4-6weeks continue antiretroviral meds Medical consult called ID consult called SW consultation for discharge plan and social issues Family involvement Follow up on labs Will monitor closely Pt was educated about risk/benefits and alternatives of medications, coping strategies (safety plan, suicide prevention), relapse prevention, importance of follow up with psychiatrist and therapist, stay away from drugs/alcohol/smoking Estimated Date of D/C: 01/15/18
[2018-01-14] MEDS: QUEtiapine 200 mg XR Tab PO SCH (21:25)
[2018-01-15 07:27] VITALS: BP 104/67; PULSE 83; TEMP 97.7
[2018-01-15] MEDS: Docusate-Senna 50 mg-8.6 mg Tab PO SCH (08:22)
[2018-01-15] MEDS: Venlafaxine 75 mg ER Cap PO SCH (08:23)
[2018-01-15] MEDS: Lidocaine 5% Patch TD SCH (08:26)
[2018-01-15] MEDS: ODEFSEY PO SCH (08:49)
== END 2018-01-15 11:25 | disposition home or self-care (01) | DRG 430 ==
LOC: ED 21:45 → EDUNIT# 22:00 → ERH 22:00 → UNMERGE 22:00 → MERGE 22:00 → PSYC 22:29
PROVIDERS: ADMIT Psychiatry & Neurology Psychiatry; ATTEND Psychiatry & Neurology Psychiatry
DX: F31.4 Bipolar disorder, current episode depressed, severe, without psychotic features (principal); J18.9 Pneumonia, unspecified organism; B18.2 Chronic viral hepatitis C; F11.20 Opioid dependence, uncomplicated; J44.0 Chronic obstructive pulmonary disease with (acute) lower respiratory infection; S22.49XA Multiple fractures of ribs, unspecified side, initial encounter for closed fracture; F41.9 Anxiety disorder, unspecified; Z21 Asymptomatic human immunodeficiency virus [HIV] infection status; F17.210 Nicotine dependence, cigarettes, uncomplicated; R45.851 Suicidal ideations; Y84.8 Other medical procedures as the cause of abnormal reaction of the patient, or of later complication, without mention of misadventure at the time of the procedure; Z68.28 Body mass index [BMI] 28.0-28.9, adult; Z80.9 Family history of malignant neoplasm, unspecified; Z82.5 Family history of asthma and other chronic lower respiratory diseases; Z90.49 Acquired absence of other specified parts of digestive tract